=== PATIENT | female | born 1955 | race Caucasian/White ===

== ENCOUNTER 2019-01-26 11:00 | Outpatient (RCR) | payer MEDICAID, SELFPAY ==
[2019-01-12 11:13] VITALS: BP 168/89; PULSE 74; RESP 20; TEMP 36.4; BMI 50.6
--- NOTE | 2019-01-12 13:16 | PCM.WC.HP ---
(1) Morbid obesity with BMI of 60.0-69.9, adult Status: Acute Current Visit: Yes Code(s): E66.01 - Morbid (severe) obesity due to excess calories; Z68.44 - Body mass index (BMI) 60.0-69.9, adult (2) Lymphedema in adult patient Status: Acute Current Visit: Yes Code(s): I89.0 - Lymphedema, not elsewhere classified (3) Open wound of lower limb without complication Status: Acute Current Visit: Yes Code(s): S81.809A - Unspecified open wound, unspecified lower leg, initial encounter History of Present Illness Date of Service: 01/12/19 Chief Complaint: Follow-up on open wounds of her left upper thigh History of Wound: 63-year-old white female that has severe lymphedema on arms and lower extremities. She goes to the lymphedema clinic at [facility] weekly. She also uses her pumps 1 hour a day. She sleeps in a recliner she also suffers from morbid obesity. She noted a blistering area on her left upper thigh with seepage. Past Medical History Past Medical History: Lymphedema legs and arms. Orbit obesity. Open blisters that are seeping Allergies/Adverse Reactions: Allergies BEE STING Allergy (Uncoded 01/12/19 11:43) Swelling Home Medications: Ambulatory Orders Medication Instructions Recorded Furosemide [Lasix] 20 mg PO DAILY 01/12/19 Metoprolol Succinate 25 mg PO DAILY 01/12/19 Warfarin Sodium 2.5 mg PO DAILY 01/12/19 Smoking Status: Never smoker Review of Systems Constitutional: Denies: Chills, Fever Eyes: Denies: Blurred vision, Drainage, Pain HEENT: Denies: Difficulty Hearing, Difficulty Swallowing, Sore Throat, Visual Changes Cardiovascular: Denies: Chest Pain, Palpitations, Syncope Respiratory: Denies: Cough, Shortness of Breath Gastrointestinal: Denies: Abdominal Pain, Nausea, Vomiting Genitourinary: Denies: Dysuria, Frequency Musculoskeletal: Denies: Joint Pain, Muscle pain Skin: Reports: - - Open wounds on left upper thigh. Denies: Jaundice, Rash Neurological: Denies: Balance problems, Change in Speech, Difficulty swallowing, Focal weakness Psychiatric: Denies: Anxiety, Depression Endocrine: Denies: Change in Body Habitus Hematologic/ Lymphatic: Denies: Adenopathy - Physical Exam Vital Signs Temp Pulse Resp BP 97.5 F L 74 20 H 168/89 H 01/12/19 11:13 01/12/19 11:13 01/12/19 11:13 01/12/19 11:13 General: Oriented x3, Cooperative, Well developed HEENT: Atraumatic, PERRLA Oral: Moist Mucosa Neck: Supple, No JVD Lungs: Clear to auscultation, Normal air movement Cardiovascular: Regular rate, Regular Rhythm Abdomen: Bowel Sounds Present, Soft, Non Tender, No Hepato-splenomegaly Extremities: No clubbing, No edema, - - Open wounds on left upper thigh cluster superficial Wound Measurements and Assessment WC - Nurse 1 - General Ulcer Measurement Start: 01/12/19 11:11 Freq: Status: Active Protocol: Activity Type Activity Date Activity User E-Sign Co-Sign Detail Recorded Client Recorded Date Recorded By Document 01/12/19 11:13 [facility] [id number] 01/12/19 11:40 [facility] 01/12/19 11:13 Wound Center Nurse 1 [Ulcer Assessment] #1- L MEDIAL THIGH -Combined with other wound No -Current Size (cm) - Length 7.8 -Current Size (cm) - Width 3.2 -Current Size (cm) - Depth 0.1 -Total Square Cm 24.96 -Date of Last Picture (Recall this 01/12/19 field) -Photo Taken Yes -Epithelialization None Present -Tunneling No -Undermining/Tunneling No -Circular Undermining No -Exudate Amt Medium -Exudate Type Serous -Wound Margin Flat & Intact -Granulation Amt Medium (34-66%) -Granulation Quality Red -Slough/Fibrin Yes -Necrosis Amt Medium (34-66%) -Necrotic Tissue Type Adherent Slough -Texture (Marjan-wound Skin Appearance) Assessed, Scarring -Moisture (Marjan-wound Skin Appearance Assessed ) -Color (Marjan-wound Skin Appearance) Assessed, Erythema, Hemosiderin Staining -Temperature (Marjan-wound Skin No Abnormality Appearance) (Pt Warm) -Tenderness on Palpation (Marjan-wound No Skin Appearance) -Ulcer Cleansing SOAP AND WATER -Foul Odor after Cleansing No -Anesthetic Used 4% Lidocaine Solution [Edema Assessment] -Lower Limb Edema Present Yes -Right Calf (cm) 70.1 -Right Ankle (cm) 43 -Left Calf (cm) 68.6 -Left Ankle (cm) 40.1 WC - Nurse 2 - General Ulcer CM Notes Start: 01/12/19 11:11 Freq: Status: Active Protocol: Activity Type Activity Date Activity User E-Sign Co-Sign Detail Recorded Client Recorded Date Recorded By Document 01/12/19 12:09 MW [id number] 01/12/19 12:14 MW 01/12/19 12:09 Wound Center Nurse 2 [Procedure/Treatment] #1- L MEDIAL THIGH -Time 12:10 -Correct Patient Yes -Correct Side, Site, Position Yes -Correct Procedure Yes -Procedure Performed Yes -Type of Procedure Debridement -Clinical Debridement Subcutaneous -Post Debridement Size (cm) - Length 8.0 -Post Debridement Size (cm) - Width 3.0 -Post Debridement Size (cm) - Depth 0.1 -Total Square Cm 24.00 -Wound/Ulcer Outcome Not Healed -Ulcer Cleansing Rinsed/ Irrigated with Saline -Foul Odor after Cleansing No -Bioengineered Tissue No -Bleeding Controlled with Pressure -Offloading No -Treatment Response Procedure Tolerated Well [See Physician Procedure note for Specifics] Pain Scale: 0-10 Numeric [Pain] -Is Patient Pain Free? Yes Musculoskeletal: No Tenderness to Palpation of Joints or Extremities Lymphatic: No Cervical, Supraclavicular, or Inguinal Adenopathy Neurological: Cranial nerves II-XII grossly intact, Neuro grossly intact Psych/Mental Status: Normal Affect, Appropriate Debridement Note Post-Debridement Measurements/Treatment WC - Nurse 2 - General Ulcer CM Notes Start: 01/12/19 11:11 Freq: Status: Active Protocol: Activity Type Activity Date Activity User E-Sign Co-Sign Detail Recorded Client Recorded Date Recorded By Document 01/12/19 12:09 MW [id number] 01/12/19 12:14 MW 01/12/19 12:09 Wound Center Nurse 2 #1- L MEDIAL THIGH -Time 12:10 -Correct Patient Yes -Correct Side, Site, Position Yes -Correct Procedure Yes -Procedure Performed Yes -Type of Procedure Debridement -Clinical Debridement Subcutaneous -Post Debridement Size (cm) - Length 8.0 -Post Debridement Size (cm) - Width 3.0 -Post Debridement Size (cm) - Depth 0.1 -Total Square Cm 24.00 -Wound/Ulcer Outcome Not Healed -Ulcer Cleansing Rinsed/ Irrigated with Saline -Foul Odor after Cleansing No -Bioengineered Tissue No -Bleeding Controlled with Pressure -Offloading No -Treatment Response Procedure Tolerated Well Pain Scale: 0-10 Numeric Is Patient Pain Free? Yes Wound debrided: Left upper thigh cluster Type of Debridement: Excisional debridement Anesthesia Used: 5% Lidocaine Gel Depth: Down to and including healthy tissue Percentage of wound debrided: 100 Tissue Removed: Slough Amount of bleeding with debridement: None Bleeding Controlled with: Pressure Patient tolerated procedure well Assessment/Plan Active Problems Morbid obesity with BMI of 60.0-69.9, adult (Acute) Lymphedema in adult patient (Acute) Open wound of lower limb without complication (Acute) Assessment: Open wound left upper thigh cluster. Morbid obesity. Lymphedema Plan: Wash areas with antibacterial soap. Apply Xeroform dressings to the area cover with gauze. Wrap with Yamil wrap. Up in 1 week
--- NOTE | 2019-01-19 10:00 | PN.PCM_ITS ---
(1) Morbid obesity with BMI of 60.0-69.9, adult Status: Acute Current Visit: Yes Code(s): E66.01 - Morbid (severe) obesity due to excess calories; Z68.44 - Body mass index (BMI) 60.0-69.9, adult (2) Lymphedema in adult patient Status: Acute Current Visit: Yes Code(s): I89.0 - Lymphedema, not elsewhere classified (3) Open wound of lower limb without complication Status: Acute Current Visit: Yes Code(s): S81.809A - Unspecified open wound, unspecified lower leg, initial encounter Type of Wound Date of Service: 01/19/19 Chief Complaint: Follow-up on open wounds of her left upper thigh History of Wound: 63-year-old white female that has severe lymphedema on arms and lower extremities. She goes to the lymphedema clinic at [facility] weekly. She also uses her pumps 1 hour a day. She sleeps in a recliner she also suffers from morbid obesity. She noted a blistering area on her left upper thigh with seepage. Progress of Wound: The wound stones appear as superficial as they did last week we will switch over to Aquacel extra to wound bases and cover again with gauze and Yamil wraps. No increases in size is in no sign of infection. - Physical Exam Vital Signs Temp Pulse Resp BP 97.5 F L 74 20 H 168/89 H 01/12/19 11:13 01/12/19 11:13 01/12/19 11:13 01/12/19 11:13 General: Oriented x3, Cooperative, Well developed HEENT: Atraumatic, PERRLA Oral: Moist Mucosa Neck: Supple, No JVD Lungs: Clear to auscultation, Normal air movement Cardiovascular: Regular rate, Regular Rhythm Abdomen: Bowel Sounds Present, Soft, Non Tender, No Hepato-splenomegaly Extremities: No clubbing, Edema Skin: Ulcer/ Wound - Blisters that have opened on the inner aspect of left medial thigh and right wood Wound Measurements and Assessment WC - Nurse 2 - General Ulcer CM Notes Start: 01/12/19 11:11 Freq: Status: Active Protocol: Activity Type Activity Date Activity User E-Sign Co-Sign Detail Recorded Client Recorded Date Recorded By Document 01/19/19 09:23 MW [id number] 01/19/19 09:27 MW 01/19/19 09:23 Wound Center Nurse 2 [Procedure/Treatment] #2 right lateral LE -Time 09:25 -Correct Patient Yes -Correct Side, Site, Position Yes -Correct Procedure Yes -Procedure Performed Yes -Type of Procedure Debridement -Clinical Debridement Subcutaneous -Post Debridement Size (cm) - Length 1.5 -Post Debridement Size (cm) - Width 1.5 -Post Debridement Size (cm) - Depth 0.1 -Total Square Cm 2.25 -Wound/Ulcer Outcome Not Healed -Ulcer Cleansing Rinsed/ Irrigated with Saline -Foul Odor after Cleansing No -Bioengineered Tissue No -Bleeding Controlled with Pressure -Offloading No -Treatment Response Procedure Tolerated Well #1- L MEDIAL THIGH -Time 09:24 -Correct Patient Yes -Correct Side, Site, Position Yes -Correct Procedure Yes -Procedure Performed Yes -Type of Procedure Debridement -Clinical Debridement Subcutaneous -Post Debridement Size (cm) - Length 9.0 -Post Debridement Size (cm) - Width 3.0 -Post Debridement Size (cm) - Depth 0.1 -Total Square Cm 27.00 -Wound/Ulcer Outcome Not Healed -Ulcer Cleansing Rinsed/ Irrigated with Saline -Foul Odor after Cleansing No -Bioengineered Tissue No -Bleeding Controlled with Pressure -Offloading No -Treatment Response Procedure Tolerated Well [See Physician Procedure note for Specifics] Pain Scale: 0-10 Numeric [Pain] -Is Patient Pain Free? Yes Musculoskeletal: No Tenderness to Palpation of Joints or Extremities Lymphatic: No Cervical, Supraclavicular, or Inguinal Adenopathy Neurological: Cranial nerves II-XII grossly intact, Neuro grossly intact Psych/Mental Status: Normal Affect, Appropriate Debridement Note Post-Debridement Measurements/Treatment WC - Nurse 2 - General Ulcer CM Notes Start: 01/12/19 11:11 Freq: Status: Active Protocol: Activity Type Activity Date Activity User E-Sign Co-Sign Detail Recorded Client Recorded Date Recorded By Document 01/12/19 12:09 MW [id number] 01/12/19 12:14 MW Document 01/19/19 09:23 MW [id number] 01/19/19 09:27 MW 01/12/19 01/19/19 12:09 09:23 Wound Center Nurse 2 #2 right lateral LE -Time 09:25 -Correct Patient Yes -Correct Side, Site, Position Yes -Correct Procedure Yes -Procedure Performed Yes -Type of Procedure Debridement -Clinical Debridement Subcutaneous -Post Debridement Size (cm) - Length 1.5 -Post Debridement Size (cm) - Width 1.5 -Post Debridement Size (cm) - Depth 0.1 -Total Square Cm 2.25 -Wound/Ulcer Outcome Not Healed -Ulcer Cleansing Rinsed/ Irrigated with Saline -Foul Odor after Cleansing No -Bioengineered Tissue No -Bleeding Controlled with Pressure -Offloading No -Treatment Response Procedure Tolerated Well #1- L MEDIAL THIGH -Time 12:10 09:24 -Correct Patient Yes Yes -Correct Side, Site, Position Yes Yes -Correct Procedure Yes Yes -Procedure Performed Yes Yes -Type of Procedure Debridement Debridement -Clinical Debridement Subcutaneous Subcutaneous -Post Debridement Size (cm) - Length 8.0 9.0 -Post Debridement Size (cm) - Width 3.0 3.0 -Post Debridement Size (cm) - Depth 0.1 0.1 -Total Square Cm 24.00 27.00 -Wound/Ulcer Outcome Not Healed Not Healed -Ulcer Cleansing Rinsed/ Rinsed/ Irrigated with Irrigated with Saline Saline -Foul Odor after Cleansing No No -Bioengineered Tissue No No -Bleeding Controlled with Pressure Pressure -Offloading No No -Treatment Response Procedure Procedure Tolerated Well Tolerated Well Pain Scale: 0-10 Numeric Is Patient Pain Free? Yes Yes Wound debrided: Left medial thigh Type of Debridement: Excisional debridement Anesthesia Used: 5% Lidocaine Gel Depth: Down to and including healthy tissue Percentage of wound debrided: 100 Instrument Used: 7mm curette Tissue Removed: Fibrin and some slough Severity: Limited To Skin Breakdown Amount of bleeding with debridement: None Bleeding Controlled with: Pressure Patient tolerated procedure well - Additional Wound Wound debrided: Right wood Type of Debridement: Excisional debridement Anesthesia Used: 5% Lidocaine Gel Depth: Down to and including healthy tissue Percentage of wound debrided: 100 Instrument Used: 7mm curette Severity: Limited To Skin Breakdown Amount of bleeding with debridement: None Bleeding Controlled with: Compression and gauze Patient tolerated procedure: Patient tolerated procedure well Assessment/Plan Active Problems Morbid obesity with BMI of 60.0-69.9, adult (Acute) Lymphedema in adult patient (Acute) Open wound of lower limb without complication (Acute) Assessment: Open wound left upper thigh cluster. Morbid obesity. Lymphedema Plan: Wash areas with antibacterial soap. Apply Aquacel extra dressings to the area cover with gauze. Wrap with Yamil wrap. Up in 1 week
[2019-01-26 10:59] VITALS: BP 154/80; PULSE 84; RESP 18; TEMP 36.2; BMI 50.6
--- NOTE | 2019-01-26 12:48 | PCM.WC.PN ---
(1) Morbid obesity with BMI of 60.0-69.9, adult Status: Acute Current Visit: Yes Code(s): E66.01 - Morbid (severe) obesity due to excess calories; Z68.44 - Body mass index (BMI) 60.0-69.9, adult (2) Lymphedema in adult patient Status: Acute Current Visit: Yes Code(s): I89.0 - Lymphedema, not elsewhere classified (3) Open wound of lower limb without complication Status: Acute Current Visit: Yes Code(s): S81.809A - Unspecified open wound, unspecified lower leg, initial encounter Type of Wound Date of Service: 01/26/19 Chief Complaint: Follow-up on open wounds of her left upper thigh History of Wound: 63-year-old white female that has severe lymphedema on arms and lower extremities. She goes to the lymphedema clinic at [facility] weekly. She also uses her pumps 1 hour a day. She sleeps in a recliner she also suffers from morbid obesity. She noted a blistering area on her left upper thigh with seepage. Progress of Wound: The the areas on the upper left thigh are superficial and cleaned out well on the Aquacel extra right wood is almost healed. No sign of infection continue to improve. - Physical Exam Vital Signs Temp Pulse Resp BP 97.1 F L 84 18 154/80 H 01/26/19 10:59 01/26/19 10:59 01/26/19 10:59 01/26/19 10:59 General: Oriented x3, Cooperative, Well developed HEENT: Atraumatic, PERRLA Oral: Moist Mucosa Neck: Supple, No JVD Lungs: Clear to auscultation, Normal air movement Cardiovascular: Regular rate, Regular Rhythm Abdomen: Bowel Sounds Present, Soft, Non Tender, No Hepato-splenomegaly Extremities: No clubbing, No edema, - - Superficial open areas on left upper thigh and right wood Wound Measurements and Assessment WC - Nurse 1 - General Ulcer Measurement Start: 01/12/19 11:11 Freq: Status: Active Protocol: Activity Type Activity Date Activity User E-Sign Co-Sign Detail Recorded Client Recorded Date Recorded By Document 01/26/19 10:59 RB [id number] 01/26/19 11:14 RB 01/26/19 10:59 Wound Center Nurse 1 [Ulcer Assessment] #2 right lateral LE -Combined with other wound No -Current Size (cm) - Length 1 -Current Size (cm) - Width 1.7 -Current Size (cm) - Depth 0.1 -Total Square Cm 1.7 -Tunneling No -Undermining/Tunneling No -Circular Undermining No -Exudate Amt Medium -Exudate Type Serosanguineous -Wound Margin Distinct, Outline Attached -Granulation Amt Medium (34-66%) -Granulation Quality [place] -Slough/Fibrin Yes -Necrosis Amt Medium (34-66%) -Necrotic Tissue Type Adherent Slough -Structure Exposed N/A -Texture (Marjan-wound Skin Appearance) Assessed, Friable -Moisture (Marjan-wound Skin Appearance Assessed, ) Weeping -Color (Marjan-wound Skin Appearance) Assessed -Temperature (Marjan-wound Skin No Abnormality Appearance) (Pt Warm) -Tenderness on Palpation (Marjan-wound No Skin Appearance) -Ulcer Cleansing Wound Cleanser -Foul Odor after Cleansing No -Anesthetic Used 5% Lidocaine Gel #1- L MEDIAL THIGH -Combined with other wound No -Current Size (cm) - Length 10.5 -Current Size (cm) - Width 9.5 -Current Size (cm) - Depth 0.1 -Total Square Cm 99.75 -Tunneling No -Undermining/Tunneling No -Circular Undermining No -Exudate Amt Medium -Exudate Type Serosanguineous -Wound Margin Distinct, Outline Attached -Granulation Amt Medium (34-66%) -Granulation Quality [place] -Slough/Fibrin Yes -Necrosis Amt Small (1-33%) -Necrotic Tissue Type Adherent Slough -Structure Exposed N/A -Texture (Marjan-wound Skin Appearance) Assessed, Friable -Moisture (Marjan-wound Skin Appearance Assessed, ) Weeping -Color (Marjan-wound Skin Appearance) Assessed -Temperature (Marjan-wound Skin No Abnormality Appearance) (Pt Warm) -Tenderness on Palpation (Marjan-wound No Skin Appearance) -Ulcer Cleansing Rinsed/ Irrigated with Saline -Foul Odor after Cleansing No -Anesthetic Used 4% Lidocaine Solution [Edema Assessment] -Lower Limb Edema Present Yes -Right Calf (cm) 70.5 -Right Ankle (cm) 45 -Left Calf (cm) 66.5 -Left Ankle (cm) 40 WC - Nurse 2 - General Ulcer CM Notes Start: 01/12/19 11:11 Freq: Status: Active Protocol: Activity Type Activity Date Activity User E-Sign Co-Sign Detail Recorded Client Recorded Date Recorded By Document 01/26/19 11:43 MW [id number] 01/26/19 11:45 MW 01/26/19 11:43 Wound Center Nurse 2 [Procedure/Treatment] #2 right lateral LE -Time 11:43 -Correct Patient Yes -Correct Side, Site, Position Yes -Correct Procedure Yes -Procedure Performed Yes -Type of Procedure Debridement -Clinical Debridement Subcutaneous -Post Debridement Size (cm) - Length 1.3 -Post Debridement Size (cm) - Width 1.5 -Post Debridement Size (cm) - Depth 0.1 -Total Square Cm 1.95 -Wound/Ulcer Outcome Not Healed -Ulcer Cleansing Rinsed/ Irrigated with Saline -Foul Odor after Cleansing No -Bioengineered Tissue No -Bleeding Controlled with Pressure -Offloading No -Treatment Response Procedure Tolerated Well #1- L MEDIAL THIGH -Time 11:43 -Correct Patient Yes -Correct Side, Site, Position Yes -Correct Procedure Yes -Procedure Performed Yes -Type of Procedure Debridement -Clinical Debridement Subcutaneous -Post Debridement Size (cm) - Length 8.5 -Post Debridement Size (cm) - Width 5.5 -Post Debridement Size (cm) - Depth 0.1 -Total Square Cm 46.75 -Wound/Ulcer Outcome Not Healed -Ulcer Cleansing Rinsed/ Irrigated with Saline -Foul Odor after Cleansing No -Bioengineered Tissue No -Bleeding Controlled with Pressure -Offloading No -Treatment Response Procedure Tolerated Well [See Physician Procedure note for Specifics] Pain Scale: 0-10 Numeric [Pain] -Is Patient Pain Free? Yes Musculoskeletal: No Tenderness to Palpation of Joints or Extremities Lymphatic: No Cervical, Supraclavicular, or Inguinal Adenopathy Neurological: Cranial nerves II-XII grossly intact, Neuro grossly intact Psych/Mental Status: Normal Affect, Appropriate Debridement Note Post-Debridement Measurements/Treatment WC - Nurse 2 - General Ulcer CM Notes Start: 01/12/19 11:11 Freq: Status: Active Protocol: Activity Type Activity Date Activity User E-Sign Co-Sign Detail Recorded Client Recorded Date Recorded By Document 01/12/19 12:09 MW [id number] 01/12/19 12:14 MW Document 01/19/19 09:23 MW [id number] 01/19/19 09:27 MW Document 01/26/19 11:43 MW [id number] 01/26/19 11:45 MW 01/12/19 01/19/19 01/26/19 12:09 09:23 11:43 Wound Center Nurse 2 #2 right lateral LE -Time 09:25 11:43 -Correct Patient Yes Yes -Correct Side, Site, Position Yes Yes -Correct Procedure Yes Yes -Procedure Performed Yes Yes -Type of Procedure Debridement Debridement -Clinical Debridement Subcutaneous Subcutaneous -Post Debridement Size (cm) - Length 1.5 1.3 -Post Debridement Size (cm) - Width 1.5 1.5 -Post Debridement Size (cm) - Depth 0.1 0.1 -Total Square Cm 2.25 1.95 -Wound/Ulcer Outcome Not Healed Not Healed -Ulcer Cleansing Rinsed/ Rinsed/ Irrigated with Irrigated with Saline Saline -Foul Odor after Cleansing No No -Bioengineered Tissue No No -Bleeding Controlled with Pressure Pressure -Offloading No No -Treatment Response Procedure Procedure Tolerated Well Tolerated Well #1- L MEDIAL THIGH -Time 12:10 09:24 11:43 -Correct Patient Yes Yes Yes -Correct Side, Site, Position Yes Yes Yes -Correct Procedure Yes Yes Yes -Procedure Performed Yes Yes Yes -Type of Procedure Debridement Debridement Debridement -Clinical Debridement Subcutaneous Subcutaneous Subcutaneous -Post Debridement Size (cm) - Length 8.0 9.0 8.5 -Post Debridement Size (cm) - Width 3.0 3.0 5.5 -Post Debridement Size (cm) - Depth 0.1 0.1 0.1 -Total Square Cm 24.00 27.00 46.75 -Wound/Ulcer Outcome Not Healed Not Healed Not Healed -Ulcer Cleansing Rinsed/ Rinsed/ Rinsed/ Irrigated with Irrigated with Irrigated with Saline Saline Saline -Foul Odor after Cleansing No No No -Bioengineered Tissue No No No -Bleeding Controlled with Pressure Pressure Pressure -Offloading No No No -Treatment Response Procedure Procedure Procedure Tolerated Well Tolerated Well Tolerated Well Pain Scale: 0-10 Numeric Is Patient Pain Free? Yes Yes Yes Wound debrided: Left upper thigh cluster Type of Debridement: Excisional debridement Anesthesia Used: 5% Lidocaine Gel Depth: Down to and including healthy tissue Percentage of wound debrided: 100 Instrument Used: 7mm curette Tissue Removed: Fibrin and some slough Severity: Limited To Skin Breakdown Amount of bleeding with debridement: None Bleeding Controlled with: Pressure Patient tolerated procedure well - Additional Wound Wound debrided: Right wood Type of Debridement: Excisional debridement Anesthesia Used: 5% Lidocaine Gel Depth: Down to and including healthy tissue Percentage of wound debrided: 100 Instrument Used: 7mm curette Tissue Removed: Fibrin Severity: Limited To Skin Breakdown Amount of bleeding with debridement: None Bleeding Controlled with: Pressure Patient tolerated procedure: Patient tolerated procedure well Assessment/Plan Active Problems Morbid obesity with BMI of 60.0-69.9, adult (Acute) Lymphedema in adult patient (Acute) Open wound of lower limb without complication (Acute) Assessment: Open wound left upper thigh cluster. Morbid obesity. Lymphedema Plan: Wash areas with antibacterial soap. Apply Aquacel extra dressings to the area cover with gauze. Wrap with Yamil wrap. Up in 2 week
== END 2019-02-05 23:59 ==
LOC: WC 11:00
PROVIDERS: Family Provider Physician Assistant Medical; PCP Physician Assistant Medical; Visit Provider Nurse Practitioner
DX: S70.322A Blister (nonthermal), left thigh, initial encounter (principal); X58.XXXA Exposure to other specified factors, initial encounter; I89.0 Lymphedema, not elsewhere classified; E66.01 Morbid (severe) obesity due to excess calories; Z68.44 Body mass index [BMI] 60.0-69.9, adult; Z71.3 Dietary counseling and surveillance; Z79.899 Other long term (current) drug therapy; Z79.01 Long term (current) use of anticoagulants; S81.801A Unspecified open wound, right lower leg, initial encounter
CPT/HCPCS: 11042; 11045; 99203; G0463

== ENCOUNTER 2019-02-23 10:30 | Outpatient (RCR) | payer MEDICAID, SELFPAY ==
[2019-02-06 01:11] VITALS: BP 154/80; PULSE 84; RESP 18; TEMP 36.2
[2019-02-09 10:40] VITALS: BP 161/89; PULSE 76; RESP 18; TEMP 36.2; BMI 50.6
--- NOTE | 2019-02-09 12:30 | PCM.WC.PN ---
(1) Lymphedema in adult patient Status: Acute Current Visit: No Code(s): I89.0 - Lymphedema, not elsewhere classified (2) Open wound of lower limb without complication Status: Acute Current Visit: No Code(s): S81.809A - Unspecified open wound, unspecified lower leg, initial encounter (3) Superficial ulcer of skin Status: Acute Current Visit: Yes Code(s): L98.491 - Non-pressure chronic ulcer of skin of other sites limited to breakdown of skin Type of Wound Date of Service: 02/09/19 Chief Complaint: Follow-up on open wounds of her left upper thigh History of Wound: 63-year-old white female that has severe lymphedema on arms and lower extremities. She goes to the lymphedema clinic at [facility] weekly. She also uses her pumps 1 hour a day. She sleeps in a recliner she also suffers from morbid obesity. She noted a blistering area on her left upper thigh with seepage. Progress of Wound: The the areas on the upper left thigh are superficial and cleaned out well on the Aquacel extra right wood is almost healed. No sign of infection continue to improve. Right lateral superficial openings left medial thigh right lateral leg right lower leg openings are all superficial from blisters that open from her noncompliance with her wraps and using her compression machine. - Physical Exam Vital Signs Temp Pulse Resp BP 97.1 F L 76 18 161/89 H 02/09/19 10:40 02/09/19 10:40 02/09/19 10:40 02/09/19 10:40 General: Oriented x3, Cooperative, Well developed HEENT: Atraumatic, PERRLA Oral: Moist Mucosa Neck: Supple, No JVD Lungs: Clear to auscultation, Normal air movement Cardiovascular: Regular rate, Regular Rhythm Abdomen: Bowel Sounds Present, Soft, Non Tender, No Hepato-splenomegaly Extremities: No clubbing, No edema, - - Lymphedema superficial openings from blisters from noncompliance with her compression stockings Wound Measurements and Assessment WC - Nurse 1 - General Ulcer Measurement Start: 02/09/19 10:39 Freq: Status: Active Protocol: Activity Type Activity Date Activity User E-Sign Co-Sign Detail Recorded Client Recorded Date Recorded By Document 02/09/19 10:40 [facility] [id number] 02/09/19 10:55 BMF 02/09/19 10:40 Wound Center Nurse 1 [Ulcer Assessment] #3- R MED LE CLUSTER -Combined with other wound No -Current Size (cm) - Length 8.5 -Current Size (cm) - Width 4.5 -Current Size (cm) - Depth 0.1 -Total Square Cm 38.25 -Photo Taken No -Epithelialization None Present -Tunneling No -Undermining/Tunneling No -Circular Undermining No -Exudate Amt Medium -Exudate Type Serous -Wound Margin Flat & Intact -Granulation Amt Medium (34-66%) -Granulation Quality Pale,Red -Slough/Fibrin Yes -Necrosis Amt Medium (34-66%) -Necrotic Tissue Type Adherent Slough -Texture (Marjan-wound Skin Appearance) Assessed, Scarring -Moisture (Marjan-wound Skin Appearance Assessed, ) Maceration -Color (Marjan-wound Skin Appearance) Assessed, Erythema -Temperature (Marjan-wound Skin No Abnormality Appearance) (Pt Warm) -Tenderness on Palpation (Marjan-wound No Skin Appearance) -Ulcer Cleansing SOAP AND WATER -Foul Odor after Cleansing No -Anesthetic Used 4% Lidocaine Solution #2 right lateral LE -Combined with other wound No -Current Size (cm) - Length 9.5 -Current Size (cm) - Width 4.8 -Current Size (cm) - Depth 0.1 -Total Square Cm 45.60 -Photo Taken No -Epithelialization None Present -Tunneling No -Undermining/Tunneling No -Circular Undermining No -Exudate Amt Large -Exudate Type Serous -Wound Margin Flat & Intact -Granulation Amt Medium (34-66%) -Granulation Quality Pale,Red -Slough/Fibrin Yes -Necrosis Amt Medium (34-66%) -Necrotic Tissue Type Adherent Slough -Texture (Marjan-wound Skin Appearance) Assessed, Scarring -Moisture (Marjan-wound Skin Appearance Assessed, ) Maceration, Weeping -Color (Marjan-wound Skin Appearance) Assessed, Erythema,Palor -Temperature (Marjan-wound Skin No Abnormality Appearance) (Pt Warm) -Tenderness on Palpation (Marjan-wound No Skin Appearance) -Ulcer Cleansing SOAP AND WATER -Foul Odor after Cleansing No -Anesthetic Used 4% Lidocaine Solution #1- L MEDIAL THIGH -Combined with other wound No -Current Size (cm) - Length 8.8 -Current Size (cm) - Width 4.5 -Current Size (cm) - Depth 0.1 -Total Square Cm 39.60 -Photo Taken No -Epithelialization None Present -Tunneling No -Undermining/Tunneling No -Circular Undermining No -Exudate Amt Medium -Exudate Type Serous -Wound Margin Flat & Intact -Granulation Amt Medium (34-66%) -Granulation Quality Pale,Red -Slough/Fibrin Yes -Necrosis Amt Medium (34-66%) -Necrotic Tissue Type Adherent Slough -Texture (Marjan-wound Skin Appearance) Assessed, Scarring -Moisture (Marjan-wound Skin Appearance Assessed, ) Maceration -Color (Marjan-wound Skin Appearance) Assessed, Erythema,Palor -Temperature (Marjan-wound Skin No Abnormality Appearance) (Pt Warm) -Tenderness on Palpation (Marjan-wound No Skin Appearance) -Ulcer Cleansing SOAP AND WATER -Foul Odor after Cleansing No -Anesthetic Used 4% Lidocaine Solution [Edema Assessment] -Lower Limb Edema Present Yes -Right Calf (cm) 70.5 -Right Ankle (cm) 37.5 -Left Calf (cm) 68.5 -Left Ankle (cm) 39.5 WC - Nurse 2 - General Ulcer CM Notes Start: 02/09/19 10:39 Freq: Status: Active Protocol: Activity Type Activity Date Activity User E-Sign Co-Sign Detail Recorded Client Recorded Date Recorded By Document 02/09/19 11:07 MW [id number] 02/09/19 11:12 MW 02/09/19 11:07 Wound Center Nurse 2 [Procedure/Treatment] #3- R MED LE CLUSTER -Time 11:08 -Correct Patient Yes -Correct Side, Site, Position Yes -Correct Procedure Yes -Procedure Performed Yes -Type of Procedure Debridement -Clinical Debridement Subcutaneous -Post Debridement Size (cm) - Length 9.5 -Post Debridement Size (cm) - Width 4.5 -Post Debridement Size (cm) - Depth 0.1 -Total Square Cm 42.75 -Wound/Ulcer Outcome Not Healed -Ulcer Cleansing Rinsed/ Irrigated with Saline -Foul Odor after Cleansing No -Bioengineered Tissue No -Bleeding Controlled with Pressure -Offloading No -Treatment Response Procedure Tolerated Well #2 right lateral LE -Time 11:08 -Correct Patient Yes -Correct Side, Site, Position Yes -Correct Procedure Yes -Procedure Performed Yes -Type of Procedure Debridement -Clinical Debridement Subcutaneous -Post Debridement Size (cm) - Length 9.0 -Post Debridement Size (cm) - Width 5.0 -Post Debridement Size (cm) - Depth 0.1 -Total Square Cm 45.00 -Wound/Ulcer Outcome Not Healed -Ulcer Cleansing Rinsed/ Irrigated with Saline -Foul Odor after Cleansing No -Bioengineered Tissue No -Bleeding Controlled with Pressure -Offloading No -Treatment Response Procedure Tolerated Well #1- L MEDIAL THIGH -Time 11:10 -Correct Patient Yes -Correct Side, Site, Position Yes -Correct Procedure Yes -Procedure Performed Yes -Type of Procedure Debridement -Clinical Debridement Subcutaneous -Post Debridement Size (cm) - Length 9.0 -Post Debridement Size (cm) - Width 7.0 -Post Debridement Size (cm) - Depth 0.1 -Total Square Cm 63.00 -Wound/Ulcer Outcome Not Healed -Ulcer Cleansing Rinsed/ Irrigated with Saline -Foul Odor after Cleansing No -Bioengineered Tissue No -Bleeding Controlled with Pressure -Offloading No -Treatment Response Procedure Tolerated Well [See Physician Procedure note for Specifics] Pain Scale: 0-10 Numeric [Pain] -Is Patient Pain Free? Yes Musculoskeletal: No Tenderness to Palpation of Joints or Extremities Lymphatic: No Cervical, Supraclavicular, or Inguinal Adenopathy Neurological: Cranial nerves II-XII grossly intact, Neuro grossly intact Psych/Mental Status: Normal Affect, Appropriate Debridement Note Post-Debridement Measurements/Treatment WC - Nurse 2 - General Ulcer CM Notes Start: 02/09/19 10:39 Freq: Status: Active Protocol: Activity Type Activity Date Activity User E-Sign Co-Sign Detail Recorded Client Recorded Date Recorded By Document 02/09/19 11:07 MW [id number] 02/09/19 11:12 MW 02/09/19 11:07 Wound Center Nurse 2 #3- R MED LE [facility] -Time 11:08 -Correct Patient Yes -Correct Side, Site, Position Yes -Correct Procedure Yes -Procedure Performed Yes -Type of Procedure Debridement -Clinical Debridement Subcutaneous -Post Debridement Size (cm) - Length 9.5 -Post Debridement Size (cm) - Width 4.5 -Post Debridement Size (cm) - Depth 0.1 -Total Square Cm 42.75 -Wound/Ulcer Outcome Not Healed -Ulcer Cleansing Rinsed/ Irrigated with Saline -Foul Odor after Cleansing No -Bioengineered Tissue No -Bleeding Controlled with Pressure -Offloading No -Treatment Response Procedure Tolerated Well #2 right lateral LE -Time 11:08 -Correct Patient Yes -Correct Side, Site, Position Yes -Correct Procedure Yes -Procedure Performed Yes -Type of Procedure Debridement -Clinical Debridement Subcutaneous -Post Debridement Size (cm) - Length 9.0 -Post Debridement Size (cm) - Width 5.0 -Post Debridement Size (cm) - Depth 0.1 -Total Square Cm 45.00 -Wound/Ulcer Outcome Not Healed -Ulcer Cleansing Rinsed/ Irrigated with Saline -Foul Odor after Cleansing No -Bioengineered Tissue No -Bleeding Controlled with Pressure -Offloading No -Treatment Response Procedure Tolerated Well #1- L MEDIAL THIGH -Time 11:10 -Correct Patient Yes -Correct Side, Site, Position Yes -Correct Procedure Yes -Procedure Performed Yes -Type of Procedure Debridement -Clinical Debridement Subcutaneous -Post Debridement Size (cm) - Length 9.0 -Post Debridement Size (cm) - Width 7.0 -Post Debridement Size (cm) - Depth 0.1 -Total Square Cm 63.00 -Wound/Ulcer Outcome Not Healed -Ulcer Cleansing Rinsed/ Irrigated with Saline -Foul Odor after Cleansing No -Bioengineered Tissue No -Bleeding Controlled with Pressure -Offloading No -Treatment Response Procedure Tolerated Well Pain Scale: 0-10 Numeric Is Patient Pain Free? Yes Wound debrided: Left upper thigh Laterality: Left Type of Debridement: Excisional debridement Anesthesia Used: 5% Lidocaine Gel Depth: Down to and including healthy tissue, in the subcutaneous layer Percentage of wound debrided: 100 Instrument Used: 7mm curette Tissue Removed: Fibrin Severity: Limited To Skin Breakdown Amount of bleeding with debridement: None Bleeding Controlled with: Pressure Patient tolerated procedure well - Additional Wound Wound debrided: Left medial thigh cluster Type of Debridement: Excisional debridement Anesthesia Used: 5% Lidocaine Gel Depth: Down to and including healthy tissue Percentage of wound debrided: 100 Instrument Used: 7mm curette Tissue Removed: Fibrin Severity: Limited To Skin Breakdown Amount of bleeding with debridement: None Patient tolerated procedure: Patient tolerated procedure well - Additional Wound Wound debrided: Right lateral lower leg posterior Type of Debridement: Excisional debridement Anesthesia Used: 5% Lidocaine Gel Depth: Down to and including healthy tissue Percentage of wound debrided: 100 Instrument Used: 7mm curette Tissue Removed: fibrin Severity: Limited To Skin Breakdown Amount of bleeding with debridement: None Bleeding Controlled with: Pressure Patient tolerated procedure: Patient tolerated procedure well Assessment/Plan Active Problems Superficial ulcer of skin (Acute) Assessment: Open wound left upper thigh cluster. Morbid obesity. Lymphedema Plan: Wash areas with antibacterial soap. Apply Aquacel extra dressings to the area cover with gauze. Wrap with Yamil wrap. Up in 1 week. Increase use of compression pump to 2 times a day wear over compression stockings
[2019-02-16 10:53] VITALS: BP 156/95; PULSE 98; RESP 20; TEMP 36.2; BMI 50.6
--- NOTE | 2019-02-16 11:35 | PN.PCM_ITS ---
(1) Lymphedema in adult patient Status: Acute Current Visit: No Code(s): I89.0 - Lymphedema, not elsewhere classified (2) Open wound of lower limb without complication Status: Acute Current Visit: No Code(s): S81.809A - Unspecified open wound, unspecified lower leg, initial encounter (3) Superficial ulcer of skin Status: Acute Current Visit: Yes Code(s): L98.491 - Non-pressure chronic ulcer of skin of other sites limited to breakdown of skin Type of Wound Date of Service: 02/16/19 Chief Complaint: Follow-up on open wounds of her left upper thigh History of Wound: 63-year-old white female that has severe lymphedema on arms and lower extremities. She goes to the lymphedema clinic at [facility] weekly. She also uses her pumps 1 hour a day. She sleeps in a recliner she also suffers from morbid obesity. She noted a blistering area on her left upper thigh with seepage. Progress of Wound: The the areas on the upper left thigh are superficial and cleaned out well on the Aquacel extra right wood is almost healed. No sign of infection continue to improve. Right lateral superficial openings left medial thigh right lateral leg right lower leg openings are all superficial from blisters that open from her noncompliance with her wraps and using her compression machine. Doing better with the compressions wraps and compression machine. - Physical Exam Vital Signs Temp Pulse Resp BP 97.1 F L 98 20 H 156/95 H 02/16/19 10:53 02/16/19 10:53 02/16/19 10:53 02/16/19 10:53 General: Oriented x3, Cooperative, Well developed HEENT: Atraumatic, PERRLA Oral: Moist Mucosa Neck: Supple, No JVD Lungs: Clear to auscultation, Normal air movement Cardiovascular: Regular rate, Regular Rhythm Abdomen: Bowel Sounds Present, Soft, Non Tender, No Hepato-splenomegaly Extremities: No clubbing, No edema Skin: Ulcer/ Wound Wound Measurements and Assessment WC - Nurse 1 - General Ulcer Measurement Start: 02/09/19 10:39 Freq: Status: Active Protocol: Activity Type Activity Date Activity User E-Sign Co-Sign Detail Recorded Client Recorded Date Recorded By Document 02/16/19 10:53 [facility] [id number] 02/16/19 11:10 BMF 02/16/19 10:53 Wound Center Nurse 1 [Ulcer Assessment] #3- R MED LE CLUSTER -Combined with other wound No -Current Size (cm) - Length 9 -Current Size (cm) - Width 3.4 -Current Size (cm) - Depth 0.1 -Total Square Cm 30.6 -Photo Taken No -Epithelialization Small 1-33% -Tunneling No -Undermining/Tunneling No -Circular Undermining No -Exudate Amt Small -Exudate Type Serous -Wound Margin Flat & Intact -Granulation Amt Large (67-100%) -Granulation Quality Red -Slough/Fibrin Yes -Necrosis Amt Small (1-33%) -Necrotic Tissue Type Adherent Slough -Texture (Marjan-wound Skin Appearance) Assessed, Scarring -Moisture (Marjan-wound Skin Appearance Assessed, ) Weeping -Color (Marjan-wound Skin Appearance) Assessed, Erythema -Temperature (Marjan-wound Skin No Abnormality Appearance) (Pt Warm) -Tenderness on Palpation (Marjan-wound No Skin Appearance) -Ulcer Cleansing SOAP AND WATER -Foul Odor after Cleansing No -Anesthetic Used 4% Lidocaine Solution #2 right lateral LE -Combined with other wound No -Current Size (cm) - Length 1.9 -Current Size (cm) - Width 2.3 -Current Size (cm) - Depth 0.1 -Total Square Cm 4.37 -Photo Taken No -Epithelialization Small 1-33% -Tunneling No -Undermining/Tunneling No -Circular Undermining No -Exudate Amt Small -Exudate Type Serous -Wound Margin Flat & Intact -Granulation Amt Medium (34-66%) -Granulation Quality Red -Slough/Fibrin Yes -Necrosis Amt Medium (34-66%) -Necrotic Tissue Type Adherent Slough -Texture (Marjan-wound Skin Appearance) Assessed, Scarring -Moisture (Marjan-wound Skin Appearance Assessed, ) Weeping -Color (Marjan-wound Skin Appearance) Assessed, Erythema -Temperature (Marjan-wound Skin No Abnormality Appearance) (Pt Warm) -Tenderness on Palpation (Marjan-wound No Skin Appearance) -Ulcer Cleansing SOAP AND WATER -Foul Odor after Cleansing No -Anesthetic Used 4% Lidocaine Solution #1- L MEDIAL THIGH -Combined with other wound No -Current Size (cm) - Length 8.6 -Current Size (cm) - Width 5.5 -Current Size (cm) - Depth 0.2 -Total Square Cm 47.30 -Photo Taken No -Epithelialization None Present -Tunneling No -Undermining/Tunneling No -Circular Undermining No -Exudate Amt Medium -Exudate Type Serous -Wound Margin Flat & Intact -Granulation Amt Large (67-100%) -Granulation Quality Pale,Red -Slough/Fibrin Yes -Necrosis Amt Small (1-33%) -Necrotic Tissue Type Adherent Slough -Texture (Marjan-wound Skin Appearance) Assessed, Scarring -Moisture (Marjan-wound Skin Appearance Assessed, ) Weeping -Color (Marjan-wound Skin Appearance) Assessed, Erythema -Temperature (Marjan-wound Skin No Abnormality Appearance) (Pt Warm) -Tenderness on Palpation (Marjan-wound No Skin Appearance) -Ulcer Cleansing SOAP AND WATER -Foul Odor after Cleansing No -Anesthetic Used 4% Lidocaine Solution [Edema Assessment] -Lower Limb Edema Present Yes -Right Calf (cm) 70.3 -Right Ankle (cm) 34.1 -Left Calf (cm) 67.9 -Left Ankle (cm) 39 WC - Nurse 2 - General Ulcer CM Notes Start: 02/09/19 10:39 Freq: Status: Active Protocol: Activity Type Activity Date Activity User E-Sign Co-Sign Detail Recorded Client Recorded Date Recorded By Document 02/16/19 11:17 MW [id number] 02/16/19 11:23 MW 02/16/19 11:17 Wound Center Nurse 2 [Procedure/Treatment] #3- R MED LE CLUSTER -Time 11:17 -Correct Patient Yes -Correct Side, Site, Position Yes -Correct Procedure Yes -Procedure Performed Yes -Type of Procedure Debridement -Clinical Debridement Subcutaneous -Post Debridement Size (cm) - Length 7.0 -Post Debridement Size (cm) - Width 3.5 -Post Debridement Size (cm) - Depth 0.1 -Total Square Cm 24.50 -Wound/Ulcer Outcome Not Healed -Ulcer Cleansing Rinsed/ Irrigated with Saline -Foul Odor after Cleansing No -Bioengineered Tissue No -Bleeding Controlled with Pressure -Offloading No -Treatment Response Procedure Tolerated Well #2 right lateral LE -Time 11:17 -Correct Patient Yes -Correct Side, Site, Position Yes -Correct Procedure Yes -Procedure Performed Yes -Type of Procedure Debridement -Clinical Debridement Subcutaneous -Post Debridement Size (cm) - Length 5.0 -Post Debridement Size (cm) - Width 5.0 -Post Debridement Size (cm) - Depth 0.1 -Total Square Cm 25.00 -Wound/Ulcer Outcome Not Healed -Ulcer Cleansing Rinsed/ Irrigated with Saline -Foul Odor after Cleansing No -Bioengineered Tissue No -Bleeding Controlled with Pressure -Offloading No -Treatment Response Procedure Tolerated Well #1- L MEDIAL THIGH -Time 11:18 -Correct Patient Yes -Correct Side, Site, Position Yes -Correct Procedure Yes -Procedure Performed Yes -Type of Procedure Debridement -Clinical Debridement Subcutaneous -Post Debridement Size (cm) - Length 9.0 -Post Debridement Size (cm) - Width 5.0 -Post Debridement Size (cm) - Depth 0.1 -Total Square Cm 45.00 -Wound/Ulcer Outcome Not Healed -Ulcer Cleansing Rinsed/ Irrigated with Saline -Foul Odor after Cleansing No -Bioengineered Tissue No -Bleeding Controlled with Pressure -Offloading No -Treatment Response Procedure Tolerated Well [See Physician Procedure note for Specifics] Pain Scale: 0-10 Numeric [Pain] -Is Patient Pain Free? Yes Musculoskeletal: No Tenderness to Palpation of Joints or Extremities Lymphatic: No Cervical, Supraclavicular, or Inguinal Adenopathy Neurological: Cranial nerves II-XII grossly intact, Neuro grossly intact Psych/Mental Status: Normal Affect, Appropriate, Alert and oriented to time, place, person, mood and affect Debridement Note Post-Debridement Measurements/Treatment WC - Nurse 2 - General Ulcer CM Notes Start: 02/09/19 10:39 Freq: Status: Active Protocol: Activity Type Activity Date Activity User E-Sign Co-Sign Detail Recorded Client Recorded Date Recorded By Document 02/09/19 11:07 MW [id number] 02/09/19 11:12 MW Document 02/16/19 11:17 MW [id number] 02/16/19 11:23 MW 02/09/19 02/16/19 11:07 11:17 Wound Center Nurse 2 #3- R MED LE CLUSTER -Time 11:08 11:17 -Correct Patient Yes Yes -Correct Side, Site, Position Yes Yes -Correct Procedure Yes Yes -Procedure Performed Yes Yes -Type of Procedure Debridement Debridement -Clinical Debridement Subcutaneous Subcutaneous -Post Debridement Size (cm) - Length 9.5 7.0 -Post Debridement Size (cm) - Width 4.5 3.5 -Post Debridement Size (cm) - Depth 0.1 0.1 -Total Square Cm 42.75 24.50 -Wound/Ulcer Outcome Not Healed Not Healed -Ulcer Cleansing Rinsed/ Rinsed/ Irrigated with Irrigated with Saline Saline -Foul Odor after Cleansing No No -Bioengineered Tissue No No -Bleeding Controlled with Pressure Pressure -Offloading No No -Treatment Response Procedure Procedure Tolerated Well Tolerated Well #2 right lateral LE -Time 11:08 11:17 -Correct Patient Yes Yes -Correct Side, Site, Position Yes Yes -Correct Procedure Yes Yes -Procedure Performed Yes Yes -Type of Procedure Debridement Debridement -Clinical Debridement Subcutaneous Subcutaneous -Post Debridement Size (cm) - Length 9.0 5.0 -Post Debridement Size (cm) - Width 5.0 5.0 -Post Debridement Size (cm) - Depth 0.1 0.1 -Total Square Cm 45.00 25.00 -Wound/Ulcer Outcome Not Healed Not Healed -Ulcer Cleansing Rinsed/ Rinsed/ Irrigated with Irrigated with Saline Saline -Foul Odor after Cleansing No No -Bioengineered Tissue No No -Bleeding Controlled with Pressure Pressure -Offloading No No -Treatment Response Procedure Procedure Tolerated Well Tolerated Well #1- L MEDIAL THIGH -Time 11:10 11:18 -Correct Patient Yes Yes -Correct Side, Site, Position Yes Yes -Correct Procedure Yes Yes -Procedure Performed Yes Yes -Type of Procedure Debridement Debridement -Clinical Debridement Subcutaneous Subcutaneous -Post Debridement Size (cm) - Length 9.0 9.0 -Post Debridement Size (cm) - Width 7.0 5.0 -Post Debridement Size (cm) - Depth 0.1 0.1 -Total Square Cm 63.00 45.00 -Wound/Ulcer Outcome Not Healed Not Healed -Ulcer Cleansing Rinsed/ Rinsed/ Irrigated with Irrigated with Saline Saline -Foul Odor after Cleansing No No -Bioengineered Tissue No No -Bleeding Controlled with Pressure Pressure -Offloading No No -Treatment Response Procedure Procedure Tolerated Well Tolerated Well Pain Scale: 0-10 Numeric Is Patient Pain Free? Yes Yes Wound debrided: Left upper thigh Type of Debridement: Excisional debridement Anesthesia Used: 5% Lidocaine Gel Depth: Down to and including healthy tissue Percentage of wound debrided: 100 Instrument Used: 7mm curette Tissue Removed: Fibrin Severity: Limited To Skin Breakdown Amount of bleeding with debridement: None Bleeding Controlled with: Compression and gauze Patient tolerated procedure well - Additional Wound Wound debrided: Right medial lower leg Type of Debridement: Excisional debridement Anesthesia Used: 5% Lidocaine Gel Depth: Down to and including healthy tissue Percentage of wound debrided: 100 Instrument Used: 7mm curette Tissue Removed: Fibrin Amount of bleeding with debridement: None Bleeding Controlled with: Pressure - Additional Wound Wound debrided: Right lateral leg Type of Debridement: Excisional debridement Depth: Down to and including healthy tissue Percentage of wound debrided: 100 Instrument Used: 7mm curette Tissue Removed: Fibrin Assessment/Plan Active Problems Superficial ulcer of skin (Acute) Assessment: Open wound left upper thigh cluster. Morbid obesity. Lymphedema Plan: Wash areas with antibacterial soap. Apply Aquacel extra dressings to the area cover with gauze. Wrap with compression wraps . Follow up in 1 week. Increase use of compression pump to 2 times a day wear over compression stockings
[2019-02-23 10:29] VITALS: BP 150/90; PULSE 80; RESP 18; TEMP 36.2; BMI 50.6
--- NOTE | 2019-02-23 11:49 | PN.PCM_ITS ---
(1) Lymphedema in adult patient Status: Acute Current Visit: Yes Code(s): I89.0 - Lymphedema, not elsewhere classified (2) Open wound of lower limb without complication Status: Acute Current Visit: Yes Code(s): S81.809A - Unspecified open wound, unspecified lower leg, initial encounter (3) Superficial ulcer of skin Status: Acute Current Visit: Yes Code(s): L98.491 - Non-pressure chronic ulcer of skin of other sites limited to breakdown of skin Type of Wound Date of Service: 02/23/19 Chief Complaint: Follow-up on open wounds of her left upper thigh History of Wound: 63-year-old white female that has severe lymphedema on arms and lower extremities. She goes to the lymphedema clinic at [facility] weekly. She also uses her pumps 1 hour a day. She sleeps in a recliner she also suffers from morbid obesity. She noted a blistering area on her left upper thigh with seepage. Progress of Wound: The the areas on the upper left thigh are healed right lateral lower leg is healed. Right wood is almost healed. No sign of infection continue to improve. Doing better with the compressions wraps and compression machine. - Physical Exam Vital Signs Temp Pulse Resp BP 97.1 F L 80 18 150/90 H 02/23/19 10:29 02/23/19 10:29 02/23/19 10:29 02/23/19 10:29 General: Oriented x3, Cooperative, Well developed HEENT: Atraumatic, PERRLA Oral: Moist Mucosa Neck: Supple, No JVD Lungs: Clear to auscultation, Normal air movement Cardiovascular: Regular rate, Regular Rhythm Abdomen: Bowel Sounds Present, Soft, Non Tender, No Hepato-splenomegaly Extremities: No clubbing, No edema Skin: Ulcer/ Wound - Superficial openings of the right wood Wound Measurements and Assessment WC - Nurse 1 - General Ulcer Measurement Start: 02/09/19 10:39 Freq: Status: Active Protocol: Activity Type Activity Date Activity User E-Sign Co-Sign Detail Recorded Client Recorded Date Recorded By Document 02/23/19 10:29 RB [id number] 02/23/19 10:41 RB 02/23/19 10:29 Wound Center Nurse 1 [Ulcer Assessment] #3- R MED LE CLUSTER -Combined with other wound No -Current Size (cm) - Length 8.2 -Current Size (cm) - Width 4.3 -Current Size (cm) - Depth 0.2 -Total Square Cm 35.26 -Tunneling No -Undermining/Tunneling No -Circular Undermining No -Exudate Amt Medium -Exudate Type Serosanguineous -Wound Margin Flat & Intact -Granulation Amt Medium (34-66%) -Granulation Quality [place] -Slough/Fibrin Yes -Necrosis Amt Medium (34-66%) -Necrotic Tissue Type Adherent Slough -Structure Exposed N/A -Texture (Marjan-wound Skin Appearance) Assessed -Moisture (Marjan-wound Skin Appearance Maceration ) -Color (Marjan-wound Skin Appearance) Erythema -Temperature (Marjan-wound Skin No Abnormality Appearance) (Pt Warm) -Tenderness on Palpation (Marjan-wound No Skin Appearance) -Ulcer Cleansing Wound Cleanser -Foul Odor after Cleansing No -Anesthetic Used 4% Lidocaine Solution #2 right lateral LE -Combined with other wound No -Current Size (cm) - Length 1.9 -Current Size (cm) - Width 1.9 -Current Size (cm) - Depth 0.1 -Total Square Cm 3.61 -Tunneling No -Undermining/Tunneling No -Circular Undermining No -Exudate Amt Medium -Exudate Type Serosanguineous -Wound Margin Flat & Intact -Granulation Amt Medium (34-66%) -Granulation Quality [place] -Slough/Fibrin Yes -Necrosis Amt Small (1-33%) -Necrotic Tissue Type Adherent Slough -Structure Exposed N/A -Texture (Marjan-wound Skin Appearance) Assessed -Moisture (Marjan-wound Skin Appearance Maceration ) -Color (Marjan-wound Skin Appearance) Erythema -Temperature (Marjan-wound Skin No Abnormality Appearance) (Pt Warm) -Tenderness on Palpation (Marjan-wound No Skin Appearance) -Ulcer Cleansing Wound Cleanser -Foul Odor after Cleansing No -Anesthetic Used 4% Lidocaine Solution #1- L MEDIAL THIGH -Combined with other wound No -Current Size (cm) - Length 8 -Current Size (cm) - Width 5.5 -Current Size (cm) - Depth 0.1 -Total Square Cm 44.0 -Tunneling No -Undermining/Tunneling No -Circular Undermining No -Exudate Amt Medium -Exudate Type Serosanguineous -Wound Margin Flat & Intact -Granulation Amt Medium (34-66%) -Granulation Quality [place] -Slough/Fibrin Yes -Necrosis Amt Small (1-33%) -Necrotic Tissue Type Adherent Slough -Structure Exposed N/A -Texture (Marjan-wound Skin Appearance) Assessed -Moisture (Marjan-wound Skin Appearance Maceration ) -Color (Marjan-wound Skin Appearance) Erythema -Temperature (Marjan-wound Skin No Abnormality Appearance) (Pt Warm) -Tenderness on Palpation (Marjan-wound No Skin Appearance) -Ulcer Cleansing Wound Cleanser -Foul Odor after Cleansing No -Anesthetic Used 4% Lidocaine Solution [Edema Assessment] -Lower Limb Edema Present Yes -Right Calf (cm) 69.3 -Right Ankle (cm) 35.3 -Left Calf (cm) 65.6 -Left Ankle (cm) 37.4 WC - Nurse 2 - General Ulcer CM Notes Start: 02/09/19 10:39 Freq: Status: Active Protocol: Activity Type Activity Date Activity User E-Sign Co-Sign Detail Recorded Client Recorded Date Recorded By Document 02/23/19 10:59 MW [id number] 02/23/19 11:02 MW 02/23/19 10:59 Wound Center Nurse 2 [Procedure/Treatment] #3- R MED LE CLUSTER -Time 11:01 -Correct Patient Yes -Correct Side, Site, Position Yes -Correct Procedure Yes -Procedure Performed Yes -Type of Procedure Debridement -Clinical Debridement Subcutaneous -Post Debridement Size (cm) - Length 9.5 -Post Debridement Size (cm) - Width 4.0 -Post Debridement Size (cm) - Depth 0.1 -Total Square Cm 38.00 -Wound/Ulcer Outcome Not Healed -Ulcer Cleansing Rinsed/ Irrigated with Saline -Foul Odor after Cleansing No -Bioengineered Tissue No -Bleeding Controlled with Pressure -Offloading No -Treatment Response Procedure Tolerated Well #2 right lateral LE -Time 11:00 -Correct Patient Yes -Correct Side, Site, Position Yes -Correct Procedure Yes -Procedure Performed No -Post Debridement Size (cm) - Length 0 -Post Debridement Size (cm) - Width 0 -Post Debridement Size (cm) - Depth 0 -Total Square Cm 0 -Wound/Ulcer Outcome Healed- Epithelialized #1- L MEDIAL THIGH -Time 11:00 -Correct Patient Yes -Correct Side, Site, Position Yes -Correct Procedure Yes -Procedure Performed No -Post Debridement Size (cm) - Length 0 -Post Debridement Size (cm) - Width 0 -Post Debridement Size (cm) - Depth 0 -Total Square Cm 0 -Wound/Ulcer Outcome Healed- Epithelialized [See Physician Procedure note for Specifics] Pain Scale: 0-10 Numeric [Pain] -Is Patient Pain Free? Yes Musculoskeletal: No Tenderness to Palpation of Joints or Extremities Lymphatic: No Cervical, Supraclavicular, or Inguinal Adenopathy Neurological: Cranial nerves II-XII grossly intact, Neuro grossly intact Psych/Mental Status: Normal Affect, Appropriate Debridement Note Post-Debridement Measurements/Treatment WC - Nurse 2 - General Ulcer CM Notes Start: 02/09/19 10:39 Freq: Status: Active Protocol: Activity Type Activity Date Activity User E-Sign Co-Sign Detail Recorded Client Recorded Date Recorded By Document 02/09/19 11:07 MW [id number] 02/09/19 11:12 MW Document 02/16/19 11:17 MW [id number] 02/16/19 11:23 MW Document 02/23/19 10:59 MW [id number] 02/23/19 11:02 MW 02/09/19 02/16/19 02/23/19 11:07 11:17 10:59 Wound Center Nurse 2 #3- R MED LE CLUSTER -Time 11:08 11:17 11:01 -Correct Patient Yes Yes Yes -Correct Side, Site, Position Yes Yes Yes -Correct Procedure Yes Yes Yes -Procedure Performed Yes Yes Yes -Type of Procedure Debridement Debridement Debridement -Clinical Debridement Subcutaneous Subcutaneous Subcutaneous -Post Debridement Size (cm) - Length 9.5 7.0 9.5 -Post Debridement Size (cm) - Width 4.5 3.5 4.0 -Post Debridement Size (cm) - Depth 0.1 0.1 0.1 -Total Square Cm 42.75 24.50 38.00 -Wound/Ulcer Outcome Not Healed Not Healed Not Healed -Ulcer Cleansing Rinsed/ Rinsed/ Rinsed/ Irrigated with Irrigated with Irrigated with Saline Saline Saline -Foul Odor after Cleansing No No No -Bioengineered Tissue No No No -Bleeding Controlled with Pressure Pressure Pressure -Offloading No No No -Treatment Response Procedure Procedure Procedure Tolerated Well Tolerated Well Tolerated Well #2 right lateral LE -Time 11:08 11:17 11:00 -Correct Patient Yes Yes Yes -Correct Side, Site, Position Yes Yes Yes -Correct Procedure Yes Yes Yes -Procedure Performed Yes Yes No -Type of Procedure Debridement Debridement -Clinical Debridement Subcutaneous Subcutaneous -Post Debridement Size (cm) - Length 9.0 5.0 0 -Post Debridement Size (cm) - Width 5.0 5.0 0 -Post Debridement Size (cm) - Depth 0.1 0.1 0 -Total Square Cm 45.00 25.00 0 -Wound/Ulcer Outcome Not Healed Not Healed Healed- Epithelialized -Ulcer Cleansing Rinsed/ Rinsed/ Irrigated with Irrigated with Saline Saline -Foul Odor after Cleansing No No -Bioengineered Tissue No No -Bleeding Controlled with Pressure Pressure -Offloading No No -Treatment Response Procedure Procedure Tolerated Well Tolerated Well #1- L MEDIAL THIGH -Time 11:10 11:18 11:00 -Correct Patient Yes Yes Yes -Correct Side, Site, Position Yes Yes Yes -Correct Procedure Yes Yes Yes -Procedure Performed Yes Yes No -Type of Procedure Debridement Debridement -Clinical Debridement Subcutaneous Subcutaneous -Post Debridement Size (cm) - Length 9.0 9.0 0 -Post Debridement Size (cm) - Width 7.0 5.0 0 -Post Debridement Size (cm) - Depth 0.1 0.1 0 -Total Square Cm 63.00 45.00 0 -Wound/Ulcer Outcome Not Healed Not Healed Healed- Epithelialized -Ulcer Cleansing Rinsed/ Rinsed/ Irrigated with Irrigated with Saline Saline -Foul Odor after Cleansing No No -Bioengineered Tissue No No -Bleeding Controlled with Pressure Pressure -Offloading No No -Treatment Response Procedure Procedure Tolerated Well Tolerated Well Pain Scale: 0-10 Numeric Is Patient Pain Free? Yes Yes Yes Wound debrided: Right wood Type of Debridement: Excisional debridement Anesthesia Used: 5% Lidocaine Gel Depth: Down to and including healthy tissue, in the subcutaneous layer Percentage of wound debrided: 100 Instrument Used: 7mm curette Tissue Removed: Urine Severity: Limited To Skin Breakdown Amount of bleeding with debridement: None Bleeding Controlled with: Compression and gauze Patient tolerated procedure well Assessment/Plan Active Problems Lymphedema in adult patient (Acute) Open wound of lower limb without complication (Acute) Superficial ulcer of skin (Acute) Assessment: Open wound left upper thigh cluster solved. Morbid obesity. Lymphedema. Superficial skin openings on right wood Plan: Wash areas with antibacterial soap. Apply Aquacel extra dressings to the area cover with gauze. Wrap with compression wraps . Follow up in 2 week. Increase use of compression pump to 2 times a day wear over compression stockings
== END 2019-03-08 23:59 ==
LOC: WC 10:30
PROVIDERS: Family Provider Physician Assistant Medical; PCP Physician Assistant Medical; Visit Provider Nurse Practitioner
DX: S70.322A Blister (nonthermal), left thigh, initial encounter (principal); X58.XXXA Exposure to other specified factors, initial encounter; I89.0 Lymphedema, not elsewhere classified; E66.01 Morbid (severe) obesity due to excess calories; Z68.44 Body mass index [BMI] 60.0-69.9, adult; Z71.3 Dietary counseling and surveillance; S81.801A Unspecified open wound, right lower leg, initial encounter; Z91.19 Patient's noncompliance with other medical treatment and regimen
CPT/HCPCS: 11042; 11045

== ENCOUNTER 2019-04-04 10:30 | Outpatient (RCR) | payer MEDICAID, SELFPAY ==
[2019-03-09 01:07] VITALS: BP 150/90; PULSE 80; RESP 18; TEMP 36.2
[2019-03-09 10:58] VITALS: BP 161/79; PULSE 81; RESP 24; TEMP 36.1; BMI 50.6
--- NOTE | 2019-03-09 12:33 | PCM.WC.PN ---
(1) Lymphedema in adult patient Status: Acute Current Visit: Yes Code(s): I89.0 - Lymphedema, not elsewhere classified (2) Morbid obesity with BMI of 60.0-69.9, adult Status: Acute Current Visit: Yes Code(s): E66.01 - Morbid (severe) obesity due to excess calories; Z68.44 - Body mass index (BMI) 60.0-69.9, adult (3) Open wound of lower limb without complication Status: Acute Current Visit: Yes Code(s): S81.809A - Unspecified open wound, unspecified lower leg, initial encounter (4) Superficial ulcer of skin Status: Acute Current Visit: Yes Code(s): L98.491 - Non-pressure chronic ulcer of skin of other sites limited to breakdown of skin Type of Wound Date of Service: 03/09/19 Chief Complaint: Follow-up on open wounds of her left upper thigh History of Wound: 63-year-old white female that has severe lymphedema on arms and lower extremities. She goes to the lymphedema clinic at [facility] weekly. She also uses her pumps 1 hour a day. She sleeps in a recliner she also suffers from morbid obesity. She noted a blistering area on her left upper thigh with seepage. Progress of Wound: The the areas on the upper left thigh are healed right lateral lower leg is healed. Right wood healed. No sign of infection continue to improve. Doing better with the compressions wraps and compression machine. Right medial lower leg cluster should be healed within the week - Physical Exam Vital Signs Temp Pulse Resp BP 96.9 F L 81 24 H 161/79 H 03/09/19 10:58 03/09/19 10:58 03/09/19 10:58 03/09/19 10:58 General: Oriented x3, Cooperative, Well developed HEENT: Atraumatic, PERRLA Oral: Moist Mucosa Neck: Supple, No JVD Lungs: Clear to auscultation, Normal air movement Cardiovascular: Regular rate, Regular Rhythm Abdomen: Bowel Sounds Present, Soft, Non Tender, No Hepato-splenomegaly Extremities: No clubbing, No edema Wound Measurements and Assessment WC - Nurse 1 - General Ulcer Measurement Start: 03/09/19 10:58 Freq: Status: Active Protocol: Activity Type Activity Date Activity User E-Sign Co-Sign Detail Recorded Client Recorded Date Recorded By Document 03/09/19 10:58 DL [id number] 03/09/19 11:10 DL 03/09/19 10:58 Wound Center Nurse 1 [Ulcer Assessment] #3- R MED LE CLUSTER -Current Size (cm) - Length 8.6 -Current Size (cm) - Width 3 -Current Size (cm) - Depth 0.1 -Total Square Cm 25.8 -Photo Taken No -Exudate Amt Medium -Exudate Type Serosanguineous -Wound Margin Indistinct, Non -Visible -Granulation Amt Medium (34-66%) -Granulation Quality [place] -Necrosis Amt Medium (34-66%) -Necrotic Tissue Type Adherent Slough -Structure Exposed N/A -Texture (Marjan-wound Skin Appearance) Excoriation, Localized Edema -Moisture (Marjan-wound Skin Appearance Weeping ) -Color (Marjan-wound Skin Appearance) Erythema,Rubor -Temperature (Marjan-wound Skin No Abnormality Appearance) (Pt Warm) -Tenderness on Palpation (Marjan-wound No Skin Appearance) -Ulcer Cleansing Wound Cleanser -Foul Odor after Cleansing No -Anesthetic Used 4% Lidocaine Solution [Edema Assessment] -Right Calf (cm) 69 -Right Ankle (cm) 38 WC - Nurse 2 - General Ulcer CM Notes Start: 03/09/19 10:58 Freq: Status: Active Protocol: Activity Type Activity Date Activity User E-Sign Co-Sign Detail Recorded Client Recorded Date Recorded By Document 03/09/19 11:44 MW [id number] 03/09/19 11:47 MW 03/09/19 11:44 Wound Center Nurse 2 [Procedure/Treatment] #3- R MED LE CLUSTER -Time 11:44 -Correct Patient Yes -Correct Side, Site, Position Yes -Correct Procedure Yes -Procedure Performed Yes -Type of Procedure Debridement -Clinical Debridement Selective -Post Debridement Size (cm) - Length 9.5 -Post Debridement Size (cm) - Width 3.5 -Post Debridement Size (cm) - Depth 0.1 -Total Square Cm 33.25 -Wound/Ulcer Outcome Not Healed -Ulcer Cleansing Not Cleansed -Foul Odor after Cleansing No -Bleeding Controlled with NA -Offloading No -Treatment Response Procedure Tolerated Well [See Physician Procedure note for Specifics] Pain Scale: 0-10 Numeric [Pain] -Is Patient Pain Free? Yes Musculoskeletal: No Tenderness to Palpation of Joints or Extremities Lymphatic: No Cervical, Supraclavicular, or Inguinal Adenopathy Neurological: Cranial nerves II-XII grossly intact, Neuro grossly intact Psych/Mental Status: Normal Affect, Appropriate, Alert and oriented to time, place, person, mood and affect Debridement Note Post-Debridement Measurements/Treatment WC - Nurse 2 - General Ulcer CM Notes Start: 03/09/19 10:58 Freq: Status: Active Protocol: Activity Type Activity Date Activity User E-Sign Co-Sign Detail Recorded Client Recorded Date Recorded By Document 03/09/19 11:44 MW [id number] 03/09/19 11:47 MW 03/09/19 11:44 Wound Center Nurse 2 #3- R MED LE CLUSTER -Time 11:44 -Correct Patient Yes -Correct Side, Site, Position Yes -Correct Procedure Yes -Procedure Performed Yes -Type of Procedure Debridement -Clinical Debridement Selective -Post Debridement Size (cm) - Length 9.5 -Post Debridement Size (cm) - Width 3.5 -Post Debridement Size (cm) - Depth 0.1 -Total Square Cm 33.25 -Wound/Ulcer Outcome Not Healed -Ulcer Cleansing Not Cleansed -Foul Odor after Cleansing No -Bleeding Controlled with NA -Offloading No -Treatment Response Procedure Tolerated Well Pain Scale: 0-10 Numeric Is Patient Pain Free? Yes Wound debrided: Right medial lower leg cluster Type of Debridement: Selective debridement Depth: Down to and including healthy tissue Percentage of wound debrided: 100 Instrument Used: 7mm curette Tissue Removed: Fibrin Amount of bleeding with debridement: Mild Patient tolerated procedure well Assessment/Plan Active Problems Morbid obesity with BMI of 60.0-69.9, adult (Acute) Lymphedema in adult patient (Acute) Open wound of lower limb without complication (Acute) Superficial ulcer of skin (Acute) Assessment: Open wound left upper thigh cluster solved. Morbid obesity. Lymphedema. Superficial skin openings on right wood resolved Plan: Wash areas with antibacterial soap. Apply Aquacel extra dressings to the area cover with gauze. Wrap with compression wraps . Follow up in 1 week. Increase use of compression pump to 2 times a day wear over compression stockings
[2019-03-16 10:50] VITALS: RESP 20; TEMP 36.3; BMI 50.6
--- NOTE | 2019-03-16 11:31 | PCM.WC.PN ---
(1) Lymphedema in adult patient Status: Acute Current Visit: Yes Code(s): I89.0 - Lymphedema, not elsewhere classified (2) Morbid obesity with BMI of 60.0-69.9, adult Status: Acute Current Visit: Yes Code(s): E66.01 - Morbid (severe) obesity due to excess calories; Z68.44 - Body mass index (BMI) 60.0-69.9, adult (3) Open wound of lower limb without complication Status: Acute Current Visit: Yes Code(s): S81.809A - Unspecified open wound, unspecified lower leg, initial encounter (4) Superficial ulcer of skin Status: Acute Current Visit: Yes Code(s): L98.491 - Non-pressure chronic ulcer of skin of other sites limited to breakdown of skin Type of Wound Date of Service: 03/16/19 Chief Complaint: Follow-up on open wounds of her left upper thigh History of Wound: 63-year-old white female that has severe lymphedema on arms and lower extremities. She goes to the lymphedema clinic at [facility] weekly. She also uses her pumps 1 hour a day. She sleeps in a recliner she also suffers from morbid obesity. She noted a blistering area on her left upper thigh with seepage. Progress of Wound: The areas on the left upper thigh the right wood and right lateral lower leg have all reopened. Patient states they have basically slacked off doing dressing changes to every other day and not putting on her compression stockings because they keep falling off. We had a long discussion with about compliance and that they need to finish this up because she was almost healed last week and then need to get the compression stockings on her or wraps and if they fall off they need to reapply. Dressing changes should be done daily. - Physical Exam Vital Signs Temp Pulse Resp BP 97.3 F L 81 20 H 161/79 H 03/16/19 10:50 03/09/19 10:58 03/16/19 10:50 03/09/19 10:58 General: Oriented x3, Cooperative, Well developed HEENT: Atraumatic, PERRLA Oral: Moist Mucosa Neck: Supple, No JVD Lungs: Clear to auscultation, Normal air movement Cardiovascular: Regular rate, Regular Rhythm Abdomen: Bowel Sounds Present, Soft, Non Tender, No Hepato-splenomegaly Extremities: No clubbing, No edema Skin: Ulcer/ Wound - Left and right lower extremities Wound Measurements and Assessment WC - Nurse 1 - General Ulcer Measurement Start: 03/09/19 10:58 Freq: Status: Active Protocol: Activity Type Activity Date Activity User E-Sign Co-Sign Detail Recorded Client Recorded Date Recorded By Document 03/16/19 10:50 [facility] [id number] 03/16/19 11:11 [facility] 03/16/19 10:50 Wound Center Nurse 1 [Ulcer Assessment] #3- R MED LE CLUSTER -Combined with other wound No -Current Size (cm) - Length 10.1 -Current Size (cm) - Width 5 -Current Size (cm) - Depth 0.1 -Total Square Cm 50.5 -Date of Last Picture (Recall this 03/16/19 field) -Photo Taken Yes -Epithelialization None Present -Tunneling No -Undermining/Tunneling No -Circular Undermining No -Exudate Amt Large -Exudate Type Serous -Wound Margin Distinct, Outline Attached -Granulation Amt Medium (34-66%) -Granulation Quality [place] -Slough/Fibrin Yes -Necrosis Amt Small (1-33%) -Necrotic Tissue Type Adherent Slough -Texture (Marjan-wound Skin Appearance) Assessed, Scarring -Moisture (Amrjan-wound Skin Appearance Assessed, ) Maceration, Weeping -Color (Marjan-wound Skin Appearance) Assessed, Erythema,Palor -Temperature (Marjan-wound Skin No Abnormality Appearance) (Pt Warm) -Tenderness on Palpation (Marjan-wound No Skin Appearance) -Ulcer Cleansing soapy water -Foul Odor after Cleansing No -Anesthetic Used 4% Lidocaine Solution #2 right lateral LE -Combined with other wound No -Current Size (cm) - Length 10.2 -Current Size (cm) - Width 4.5 -Current Size (cm) - Depth 0.1 -Total Square Cm 45.90 -Date of Last Picture (Recall this 03/16/19 field) -Photo Taken Yes -Epithelialization None Present -Tunneling No -Undermining/Tunneling No -Circular Undermining No -Exudate Amt Large -Exudate Type Serous -Wound Margin Distinct, Outline Attached -Granulation Amt Large (67-100%) -Granulation Quality [place] -Slough/Fibrin Yes -Necrosis Amt Small (1-33%) -Necrotic Tissue Type Adherent Slough -Texture (Marjan-wound Skin Appearance) Assessed, Scarring -Moisture (Marjan-wound Skin Appearance Assessed, ) Maceration, Weeping -Color (Marjan-wound Skin Appearance) Erythema,[place] -Temperature (Marjan-wound Skin No Abnormality Appearance) (Pt Warm) -Tenderness on Palpation (Marjan-wound No Skin Appearance) -Ulcer Cleansing soapy water -Foul Odor after Cleansing No -Anesthetic Used 4% Lidocaine Solution #1- L MEDIAL THIGH -Combined with other wound No -Current Size (cm) - Length 11.5 -Current Size (cm) - Width 5.5 -Current Size (cm) - Depth 0.1 -Total Square Cm 63.25 -Date of Last Picture (Recall this 03/16/19 field) -Photo Taken Yes -Epithelialization None Present -Tunneling No -Undermining/Tunneling No -Circular Undermining No -Exudate Amt Large -Exudate Type Serous -Wound Margin Flat & Intact -Granulation Amt Large (67-100%) -Granulation Quality N/A,[place] -Necrosis Amt Small (1-33%) -Necrotic Tissue Type Adherent Slough -Texture (Marjan-wound Skin Appearance) Assessed, Scarring -Moisture (Marjan-wound Skin Appearance Assessed, ) Maceration, Weeping -Color (Marjan-wound Skin Appearance) Erythema,[place] -Temperature (Marjan-wound Skin No Abnormality Appearance) (Pt Warm) -Tenderness on Palpation (Marjan-wound No Skin Appearance) -Ulcer Cleansing soapy water -Foul Odor after Cleansing No -Anesthetic Used 4% Lidocaine Solution [Edema Assessment] -Lower Limb Edema Present Yes -Right Calf (cm) 72 -Right Ankle (cm) 39.5 -Left Calf (cm) 68.5 -Left Ankle (cm) 39.4 Musculoskeletal: No Tenderness to Palpation of Joints or Extremities Lymphatic: No Cervical, Supraclavicular, or Inguinal Adenopathy Neurological: Cranial nerves II-XII grossly intact, Neuro grossly intact Psych/Mental Status: Normal Affect, Appropriate Debridement Note Post-Debridement Measurements/Treatment WC - Nurse 2 - General Ulcer CM Notes Start: 03/09/19 10:58 Freq: Status: Active Protocol: Activity Type Activity Date Activity User E-Sign Co-Sign Detail Recorded Client Recorded Date Recorded By Document 03/09/19 11:44 MW [id number] 03/09/19 11:47 MW 11/01/19 11:44 Wound Center Nurse 2 #3- R PASCALE CARRILLO CLUSTER -Time 11:44 -Correct Patient Yes -Correct Side, Site, Position Yes -Correct Procedure Yes -Procedure Performed Yes -Type of Procedure Debridement -Clinical Debridement Selective -Post Debridement Size (cm) - Length 9.5 -Post Debridement Size (cm) - Width 3.5 -Post Debridement Size (cm) - Depth 0.1 -Total Square Cm 33.25 -Wound/Ulcer Outcome Not Healed -Ulcer Cleansing Not Cleansed -Foul Odor after Cleansing No -Bleeding Controlled with NA -Offloading No -Treatment Response Procedure Tolerated Well Pain Scale: 0-10 Numeric Is Patient Pain Free? Yes Wound debrided: Left upper thigh Type of Debridement: Selective debridement Anesthesia Used: 5% Lidocaine Gel Depth: Down to and including healthy tissue, in the subcutaneous layer Percentage of wound debrided: 100 Instrument Used: - - Gauze Tissue Removed: Fibrin Severity: Limited To Skin Breakdown Amount of bleeding with debridement: None Patient tolerated procedure well - Additional Wound Wound debrided: Right medial lower leg cluster Type of Debridement: Selective debridement Anesthesia Used: 5% Lidocaine Gel Depth: Down to and including healthy tissue Percentage of wound debrided: 100 Instrument Used: - - Gauze Tissue Removed: Fibrin Severity: Limited To Skin Breakdown Amount of bleeding with debridement: None Bleeding Controlled with: Pressure Patient tolerated procedure: Patient tolerated procedure well - Additional Wound Wound debrided: Right lateral lower leg cluster Type of Debridement: Selective debridement Anesthesia Used: 5% Lidocaine Gel Depth: Down to and including healthy tissue Instrument Used: - Tissue Removed: Fibrin Severity: Limited To Skin Breakdown Amount of bleeding with debridement: None Patient tolerated procedure: Patient tolerated procedure well Assessment/Plan Active Problems Morbid obesity with BMI of 60.0-69.9, adult (Acute) Lymphedema in adult patient (Acute) Open wound of lower limb without complication (Acute) Superficial ulcer of skin (Acute) Assessment: Open wound left upper thigh cluster solved. Morbid obesity. Lymphedema. Superficial skin openings on right wood resolved Plan: Wash areas with antibacterial soap. Apply Aquacel extra dressings to the area cover with gauze. Wrap with compression wraps . Follow up in 1 week. Increase use of compression pump to 2 times a day wear over compression stockings
[2019-03-21 10:37] VITALS: BP 179/100; PULSE 81; RESP 20; TEMP 36.1; BMI 50.6
--- NOTE | 2019-03-21 11:09 | PN.PCM_ITS ---
(1) Lymphedema in adult patient Status: Acute Current Visit: Yes Code(s): I89.0 - Lymphedema, not elsewhere classified (2) Morbid obesity with BMI of 60.0-69.9, adult Status: Acute Current Visit: Yes Code(s): E66.01 - Morbid (severe) obesity due to excess calories; Z68.44 - Body mass index (BMI) 60.0-69.9, adult (3) Open wound of lower limb without complication Status: Acute Current Visit: Yes Code(s): S81.809A - Unspecified open wound, unspecified lower leg, initial encounter (4) Superficial ulcer of skin Status: Acute Current Visit: Yes Code(s): L98.491 - Non-pressure chronic ulcer of skin of other sites limited to breakdown of skin Type of Wound Date of Service: 03/21/19 Chief Complaint: Follow-up on open wounds of her left upper thigh History of Wound: 63-year-old white female that has severe lymphedema on arms and lower extremities. She goes to the lymphedema clinic at [facility] weekly. She also uses her pumps 1 hour a day. She sleeps in a recliner she also suffers from morbid obesity. She noted a blistering area on her left upper thigh with seepage. Progress of Wound: The areas on the left upper thigh the right wood and right lateral lower leg have all reopened. The areas are now closing they have been better about using there wraps. You are going to follow-up in 2 more weeks to make sure they are all healed pretty much they are almost closed. She is going to buy a single bed so she can sleep in a bed not in a chair which is really good. - Physical Exam Vital Signs Temp Pulse Resp BP 97 F L 81 20 H 179/100 H 03/21/19 10:37 03/21/19 10:37 03/21/19 10:37 03/21/19 10:37 General: Oriented x3, Cooperative, Well developed HEENT: Atraumatic, PERRLA Oral: Moist Mucosa Neck: Supple, No JVD Lungs: Clear to auscultation, Normal air movement Cardiovascular: Regular rate, Regular Rhythm Abdomen: Bowel Sounds Present, Soft, Non Tender, No Hepato-splenomegaly Extremities: No clubbing, No edema Skin: Ulcer/ Wound - Listers that turned to ulcers Wound Measurements and Assessment WC - Nurse 1 - General Ulcer Measurement Start: 03/09/19 10:58 Freq: Status: Active Protocol: Activity Type Activity Date Activity User E-Sign Co-Sign Detail Recorded Client Recorded Date Recorded By Document 03/21/19 10:37 [facility] [id number] 03/21/19 10:49 [facility] 03/21/19 10:37 Wound Center Nurse 1 [Ulcer Assessment] #3- R MED LE CLUSTER -Combined with other wound No -Current Size (cm) - Length 8.8 -Current Size (cm) - Width 5 -Current Size (cm) - Depth 0.1 -Total Square Cm 44.0 -Tunneling No -Undermining/Tunneling No -Circular Undermining No -Exudate Amt Small -Exudate Type Serosanguineous -Wound Margin Flat & Intact -Granulation Amt Medium (34-66%) -Granulation Quality [place],Red -Slough/Fibrin Yes -Necrosis Amt Small (1-33%) -Necrotic Tissue Type Adherent Slough -Structure Exposed N/A -Texture (Marjan-wound Skin Appearance) Assessed -Moisture (Marjan-wound Skin Appearance Assessed ) -Color (Marjan-wound Skin Appearance) Assessed -Temperature (Marjan-wound Skin No Abnormality Appearance) (Pt Warm) -Tenderness on Palpation (Marjan-wound No Skin Appearance) -Ulcer Cleansing Wound Cleanser -Foul Odor after Cleansing No -Anesthetic Used 4% Lidocaine Solution #2 right lateral LE -Combined with other wound No -Current Size (cm) - Length 1.5 -Current Size (cm) - Width 1.5 -Current Size (cm) - Depth 0.1 -Total Square Cm 2.25 -Tunneling No -Undermining/Tunneling No -Circular Undermining No -Exudate Amt Small -Exudate Type Serosanguineous -Wound Margin Flat & Intact -Granulation Amt Medium (34-66%) -Granulation Quality [place],Red -Slough/Fibrin Yes -Necrosis Amt Small (1-33%) -Necrotic Tissue Type Adherent Slough -Structure Exposed N/A -Texture (Marjan-wound Skin Appearance) Assessed -Moisture (Marjan-wound Skin Appearance Assessed ) -Color (Marjan-wound Skin Appearance) Assessed -Temperature (Marjan-wound Skin No Abnormality Appearance) (Pt Warm) -Tenderness on Palpation (Marjan-wound No Skin Appearance) -Ulcer Cleansing Wound Cleanser -Foul Odor after Cleansing No -Anesthetic Used 4% Lidocaine Solution #1- L MEDIAL THIGH -Combined with other wound No -Current Size (cm) - Length 7.3 -Current Size (cm) - Width 7.4 -Current Size (cm) - Depth 0.1 -Total Square Cm 54.02 -Tunneling No -Undermining/Tunneling No -Circular Undermining No -Exudate Amt Small -Exudate Type Serosanguineous -Wound Margin Flat & Intact -Granulation Amt Medium (34-66%) -Granulation Quality [place],Red -Slough/Fibrin Yes -Necrosis Amt Small (1-33%) -Necrotic Tissue Type Adherent Slough -Structure Exposed N/A -Texture (Marjan-wound Skin Appearance) Assessed -Moisture (Marjan-wound Skin Appearance Assessed ) -Color (Marjan-wound Skin Appearance) Assessed, Erythema -Temperature (Marjan-wound Skin No Abnormality Appearance) (Pt Warm) -Tenderness on Palpation (Marjan-wound No Skin Appearance) -Ulcer Cleansing Wound Cleanser -Foul Odor after Cleansing No -Anesthetic Used 4% Lidocaine Solution [Edema Assessment] -Lower Limb Edema Present Yes -Right Calf (cm) 71.3 -Right Ankle (cm) 37.8 -Left Calf (cm) 65.7 -Left Ankle (cm) 37.5 WC - Nurse 2 - General Ulcer CM Notes Start: 03/09/19 10:58 Freq: Status: Active Protocol: Activity Type Activity Date Activity User E-Sign Co-Sign Detail Recorded Client Recorded Date Recorded By Document 03/21/19 11:01 MW [id number] 03/21/19 11:06 MW 03/21/19 11:01 Wound Center Nurse 2 [Procedure/Treatment] #3- R MED LE CLUSTER -Time 11:02 -Correct Patient Yes -Correct Side, Site, Position Yes -Correct Procedure Yes -Procedure Performed No -Wound/Ulcer Outcome Not Healed -Ulcer Cleansing Rinsed/ Irrigated with Saline -Foul Odor after Cleansing No -Bleeding Controlled with NA -Offloading No -Treatment Response Procedure Tolerated Well #2 right lateral LE -Time 11:03 -Correct Patient Yes -Correct Side, Site, Position Yes -Correct Procedure Yes -Procedure Performed No -Wound/Ulcer Outcome Not Healed -Ulcer Cleansing Rinsed/ Irrigated with Saline -Foul Odor after Cleansing No -Bleeding Controlled with Pressure -Offloading No -Treatment Response Procedure Tolerated Well #1- L MEDIAL THIGH -Time 11:03 -Correct Patient Yes -Correct Side, Site, Position Yes -Correct Procedure Yes -Procedure Performed No -Wound/Ulcer Outcome Not Healed -Ulcer Cleansing Rinsed/ Irrigated with Saline -Foul Odor after Cleansing No -Bioengineered Tissue No -Bleeding Controlled with Pressure -Offloading No -Treatment Response Procedure Tolerated Well [See Physician Procedure note for Specifics] Pain Scale: 0-10 Numeric [Pain] -Is Patient Pain Free? Yes Musculoskeletal: No Tenderness to Palpation of Joints or Extremities Lymphatic: No Cervical, Supraclavicular, or Inguinal Adenopathy Neurological: Cranial nerves II-XII grossly intact, Neuro grossly intact Psych/Mental Status: Normal Affect, Appropriate Debridement Note Post-Debridement Measurements/Treatment WC - Nurse 2 - General Ulcer CM Notes Start: 03/09/19 10:58 Freq: Status: Active Protocol: Activity Type Activity Date Activity User E-Sign Co-Sign Detail Recorded Client Recorded Date Recorded By Document 03/09/19 11:44 MW [id number] 03/09/19 11:47 MW Document 03/16/19 11:29 MW [id number] 03/16/19 11:31 MW Document 03/21/19 11:01 MW [id number] 03/21/19 11:06 MW 03/09/19 03/16/19 03/21/19 11:44 11:29 11:01 Wound Center Nurse 2 #3- R MED LE CLUSTER -Time 11:44 11:29 11:02 -Correct Patient Yes Yes Yes -Correct Side, Site, Position Yes Yes Yes -Correct Procedure Yes Yes Yes -Procedure Performed Yes Yes No -Type of Procedure Debridement Debridement -Clinical Debridement Selective Subcutaneous -Post Debridement Size (cm) - Length 9.5 10.0 -Post Debridement Size (cm) - Width 3.5 4.5 -Post Debridement Size (cm) - Depth 0.1 0.1 -Total Square Cm 33.25 45.00 -Wound/Ulcer Outcome Not Healed Not Healed Not Healed -Ulcer Cleansing Not Cleansed Rinsed/ Rinsed/ Irrigated with Irrigated with Saline Saline -Foul Odor after Cleansing No No No -Bioengineered Tissue No -Bleeding Controlled with NA Pressure NA -Offloading No No No -Treatment Response Procedure Procedure Procedure Tolerated Well Tolerated Well Tolerated Well #2 right lateral LE -Time 11:30 11:03 -Correct Patient Yes Yes -Correct Side, Site, Position Yes Yes -Correct Procedure Yes Yes -Procedure Performed Yes No -Type of Procedure Debridement -Clinical Debridement Subcutaneous -Post Debridement Size (cm) - Length 8.5 -Post Debridement Size (cm) - Width 4.0 -Post Debridement Size (cm) - Depth 0.1 -Total Square Cm 34.00 -Wound/Ulcer Outcome Not Healed Not Healed -Ulcer Cleansing Rinsed/ Rinsed/ Irrigated with Irrigated with Saline Saline -Foul Odor after Cleansing No No -Bioengineered Tissue No -Bleeding Controlled with Pressure Pressure -Offloading No No -Treatment Response Procedure Procedure Tolerated Well Tolerated Well #1- L MEDIAL THIGH -Time 11:30 11:03 -Correct Patient Yes Yes -Correct Side, Site, Position Yes Yes -Correct Procedure Yes Yes -Procedure Performed Yes No -Type of Procedure Debridement -Clinical Debridement Subcutaneous -Post Debridement Size (cm) - Length 10.0 -Post Debridement Size (cm) - Width 7.0 -Post Debridement Size (cm) - Depth 0.1 -Total Square Cm 70.00 -Wound/Ulcer Outcome Not Healed Not Healed -Ulcer Cleansing Rinsed/ Rinsed/ Irrigated with Irrigated with Saline Saline -Foul Odor after Cleansing No No -Bioengineered Tissue No No -Bleeding Controlled with Pressure Pressure -Offloading No No -Treatment Response Procedure Procedure Tolerated Well Tolerated Well Pain Scale: 0-10 Numeric Is Patient Pain Free? Yes Yes Yes No debridement was completed today Assessment/Plan Active Problems Morbid obesity with BMI of 60.0-69.9, adult (Acute) Lymphedema in adult patient (Acute) Open wound of lower limb without complication (Acute) Superficial ulcer of skin (Acute) Assessment: Open wound left upper thigh cluster solved. Morbid obesity. Lymphedema. Superficial skin openings on right wood resolved Plan: Wash areas with antibacterial soap. Apply Aquacel extra dressings to the area cover with gauze. Wrap with compression wraps . Follow up in 2 week. Increase use of compression pump to 2 times a day wear over compression stockings
[2019-04-04 10:36] VITALS: BP 158/98; PULSE 101; RESP 20; TEMP 36.6; BMI 50.6
--- NOTE | 2019-04-04 11:17 | PCM.WC.PN ---
(1) Lymphedema in adult patient Status: Acute Current Visit: Yes Code(s): I89.0 - Lymphedema, not elsewhere classified (2) Morbid obesity with BMI of 60.0-69.9, adult Status: Acute Current Visit: Yes Code(s): E66.01 - Morbid (severe) obesity due to excess calories; Z68.44 - Body mass index (BMI) 60.0-69.9, adult (3) Open wound of lower limb without complication Status: Acute Current Visit: Yes Code(s): S81.809A - Unspecified open wound, unspecified lower leg, initial encounter (4) Superficial ulcer of skin Status: Acute Current Visit: Yes Code(s): L98.491 - Non-pressure chronic ulcer of skin of other sites limited to breakdown of skin Type of Wound Date of Service: 04/04/19 Chief Complaint: Follow-up on open wounds of her left upper thigh History of Wound: 63-year-old white female that has severe lymphedema on arms and lower extremities. She goes to the lymphedema clinic at [facility] weekly. She also uses her pumps 1 hour a day. She sleeps in a recliner she also suffers from morbid obesity. She noted a blistering area on her left upper thigh with seepage. Progress of Wound: The areas on the left upper thigh the right wood and right lateral lower leg have all reopened. The areas are now closing they have been better about using there wraps. She is going to buy a single bed so she can sleep in a bed not in a chair which is really good. - Physical Exam Vital Signs Temp Pulse Resp BP 97.8 F 101 H 20 H 158/98 H 04/04/19 10:36 04/04/19 10:36 04/04/19 10:36 04/04/19 10:36 General: Oriented x3, Cooperative, Well developed HEENT: Atraumatic, PERRLA Oral: Moist Mucosa Neck: Supple, No JVD Lungs: Clear to auscultation, Normal air movement Cardiovascular: Regular rate, Regular Rhythm Abdomen: Bowel Sounds Present, Soft, Non Tender, No Hepato-splenomegaly Extremities: No clubbing, No edema Skin: Ulcer/ Wound Wound Measurements and Assessment WC - Nurse 1 - General Ulcer Measurement Start: 03/09/19 10:58 Freq: Status: Active Protocol: Activity Type Activity Date Activity User E-Sign Co-Sign Detail Recorded Client Recorded Date Recorded By Document 04/04/19 10:36 RB [id number] 04/04/19 10:55 RB 04/04/19 10:36 Wound Center Nurse 1 [Ulcer Assessment] #3- R MED LE CLUSTER -Combined with other wound No -Current Size (cm) - Length 11 -Current Size (cm) - Width 11.5 -Current Size (cm) - Depth 0.1 -Total Square Cm 126.5 -Tunneling No -Undermining/Tunneling No -Circular Undermining No -Exudate Amt Large -Exudate Type Serosanguineous -Wound Margin Flat & Intact -Granulation Amt Medium (34-66%) -Granulation Quality Boyd -Slough/Fibrin Yes -Necrosis Amt Medium (34-66%) -Necrotic Tissue Type Adherent Slough -Structure Exposed N/A -Texture (Marjan-wound Skin Appearance) Assessed, Excoriation, Friable -Moisture (Marjan-wound Skin Appearance Assessed, ) Maceration, Weeping -Color (Marjan-wound Skin Appearance) Assessed -Temperature (Marjan-wound Skin No Abnormality Appearance) (Pt Warm) -Tenderness on Palpation (Marjan-wound No Skin Appearance) -Ulcer Cleansing Wound Cleanser -Foul Odor after Cleansing No -Anesthetic Used 4% Lidocaine Solution #2 right lateral LE -Combined with other wound No -Current Size (cm) - Length 0.1 -Current Size (cm) - Width 0.1 -Current Size (cm) - Depth 0.1 -Total Square Cm 0.01 -Tunneling No -Undermining/Tunneling No -Circular Undermining No -Exudate Amt Small -Exudate Type Serosanguineous -Wound Margin Flat & Intact -Granulation Amt Medium (34-66%) -Granulation Quality Boyd -Slough/Fibrin Yes -Necrosis Amt Medium (34-66%) -Necrotic Tissue Type Adherent Slough -Structure Exposed N/A -Texture (Marjan-wound Skin Appearance) Assessed, Friable -Moisture (Marjan-wound Skin Appearance Weeping ) -Color (Marjan-wound Skin Appearance) Assessed -Temperature (Marjan-wound Skin No Abnormality Appearance) (Pt Warm) -Tenderness on Palpation (Marjan-wound No Skin Appearance) -Ulcer Cleansing Wound Cleanser -Foul Odor after Cleansing No -Anesthetic Used 4% Lidocaine Solution #1- L MEDIAL THIGH -Combined with other wound No -Current Size (cm) - Length 9 -Current Size (cm) - Width 8 -Current Size (cm) - Depth 0.1 -Total Square Cm 72 -Tunneling No -Undermining/Tunneling No -Circular Undermining No -Exudate Amt Large -Exudate Type Serosanguineous -Wound Margin Flat & Intact -Granulation Amt Medium (34-66%) -Granulation Quality Boyd -Slough/Fibrin Yes -Necrosis Amt Medium (34-66%) -Necrotic Tissue Type Adherent Slough -Structure Exposed N/A -Texture (Marjan-wound Skin Appearance) Assessed, Friable -Moisture (Marjan-wound Skin Appearance Assessed, ) Maceration, Weeping -Color (Marjan-wound Skin Appearance) Assessed -Temperature (Marjan-wound Skin No Abnormality Appearance) (Pt Warm) -Tenderness on Palpation (Marjan-wound No Skin Appearance) -Ulcer Cleansing Wound Cleanser -Foul Odor after Cleansing No -Anesthetic Used 4% Lidocaine Solution [Edema Assessment] -Lower Limb Edema Present Yes -Right Calf (cm) 73.5 -Right Ankle (cm) 38.5 -Left Calf (cm) 68 -Left Ankle (cm) 37 WC - Nurse 2 - General Ulcer CM Notes Start: 03/09/19 10:58 Freq: Status: Active Protocol: Activity Type Activity Date Activity User E-Sign Co-Sign Detail Recorded Client Recorded Date Recorded By Document 04/04/19 10:59 MW [id number] 04/04/19 11:02 MW 04/04/19 10:59 Wound Center Nurse 2 [Procedure/Treatment] #3- R MED LE CLUSTER -Time 11:00 -Correct Patient Yes -Correct Side, Site, Position Yes -Correct Procedure Yes -Procedure Performed Yes -Type of Procedure Debridement -Clinical Debridement Subcutaneous -Post Debridement Size (cm) - Length 13.0 -Post Debridement Size (cm) - Width 11.0 -Post Debridement Size (cm) - Depth 0.1 -Total Square Cm 143.00 -Wound/Ulcer Outcome Not Healed -Ulcer Cleansing Rinsed/ Irrigated with Saline -Foul Odor after Cleansing No -Bioengineered Tissue No -Bleeding Controlled with Pressure -Offloading No -Treatment Response Procedure Tolerated Well #2 right [facility] LE -Time 11:00 -Correct Patient Yes -Correct Side, Site, Position Yes -Correct Procedure Yes -Procedure Performed No -Post Debridement Size (cm) - Length 0 -Post Debridement Size (cm) - Width 0 -Post Debridement Size (cm) - Depth 0 -Total Square Cm 0 -Wound/Ulcer Outcome Healed- Epithelialized #1- L MEDIAL THIGH -Time 11:01 -Correct Patient Yes -Correct Side, Site, Position Yes -Correct Procedure Yes -Procedure Performed Yes -Type of Procedure Debridement -Clinical Debridement Subcutaneous -Post Debridement Size (cm) - Length 3.0 -Post Debridement Size (cm) - Width 3.0 -Post Debridement Size (cm) - Depth 0.1 -Total Square Cm 9.00 -Wound/Ulcer Outcome Not Healed -Ulcer Cleansing Rinsed/ Irrigated with Saline -Foul Odor after Cleansing No -Bioengineered Tissue No -Bleeding Controlled with Pressure -Offloading No -Treatment Response Procedure Tolerated Well [See Physician Procedure note for Specifics] Pain Scale: 0-10 Numeric [Pain] -Is Patient Pain Free? Yes Musculoskeletal: No Tenderness to Palpation of Joints or Extremities Lymphatic: No Cervical, Supraclavicular, or Inguinal Adenopathy Neurological: Cranial nerves II-XII grossly intact, Neuro grossly intact Psych/Mental Status: Normal Affect, Appropriate Debridement Note Post-Debridement Measurements/Treatment WC - Nurse 2 - General Ulcer CM Notes Start: 03/09/19 10:58 Freq: Status: Active Protocol: Activity Type Activity Date Activity User E-Sign Co-Sign Detail Recorded Client Recorded Date Recorded By Document 03/09/19 11:44 MW [id number] 03/09/19 11:47 MW Document 03/16/19 11:29 MW [id number] 03/16/19 11:31 MW Document 03/21/19 11:01 MW [id number] 03/21/19 11:06 MW Document 04/04/19 10:59 MW [id number] 04/04/19 11:02 MW 03/09/19 03/16/19 03/21/19 11:44 11:29 11:01 Wound Center Nurse 2 #3- R MED LE CLUSTER -Time 11:44 11:29 11:02 -Correct Patient Yes Yes Yes -Correct Side, Site, Position Yes Yes Yes -Correct Procedure Yes Yes Yes -Procedure Performed Yes Yes No -Type of Procedure Debridement Debridement -Clinical Debridement Selective Subcutaneous -Post Debridement Size (cm) - Length 9.5 10.0 -Post Debridement Size (cm) - Width 3.5 4.5 -Post Debridement Size (cm) - Depth 0.1 0.1 -Total Square Cm 33.25 45.00 -Wound/Ulcer Outcome Not Healed Not Healed Not Healed -Ulcer Cleansing Not Cleansed Rinsed/ Rinsed/ Irrigated with Irrigated with Saline Saline -Foul Odor after Cleansing No No No -Bioengineered Tissue No -Bleeding Controlled with NA Pressure NA -Offloading No No No -Treatment Response Procedure Procedure Procedure Tolerated Well Tolerated Well Tolerated Well #2 right lateral LE -Time 11: 11:03 -Correct Patient Yes Yes -Correct Side, Site, Position Yes Yes -Correct Procedure Yes Yes -Procedure Performed Yes No -Type of Procedure Debridement -Clinical Debridement Subcutaneous -Post Debridement Size (cm) - Length 8.5 -Post Debridement Size (cm) - Width 4.0 -Post Debridement Size (cm) - Depth 0.1 -Total Square Cm 34.00 -Wound/Ulcer Outcome Not Healed Not Healed -Ulcer Cleansing Rinsed/ Rinsed/ Irrigated with Irrigated with Saline Saline -Foul Odor after Cleansing No No -Bioengineered Tissue No -Bleeding Controlled with Pressure Pressure -Offloading No No -Treatment Response Procedure Procedure Tolerated Well Tolerated Well #1- L MEDIAL THIGH -Time 11: 11:03 -Correct Patient Yes Yes -Correct Side, Site, Position Yes Yes -Correct Procedure Yes Yes -Procedure Performed Yes No -Type of Procedure Debridement -Clinical Debridement Subcutaneous -Post Debridement Size (cm) - Length 10.0 -Post Debridement Size (cm) - Width 7.0 -Post Debridement Size (cm) - Depth 0.1 -Total Square Cm 70.00 -Wound/Ulcer Outcome Not Healed Not Healed -Ulcer Cleansing Rinsed/ Rinsed/ Irrigated with Irrigated with Saline Saline -Foul Odor after Cleansing No No -Bioengineered Tissue No No -Bleeding Controlled with Pressure Pressure -Offloading No No -Treatment Response Procedure Procedure Tolerated Well Tolerated Well Pain Scale: 0-10 Numeric Is Patient Pain Free? Yes Yes Yes 04/04/19 10:59 Wound Center Nurse 2 #3- R MED LE CLUSTER -Time 11:00 -Correct Patient Yes -Correct Side, Site, Position Yes -Correct Procedure Yes -Procedure Performed Yes -Type of Procedure Debridement -Clinical Debridement Subcutaneous -Post Debridement Size (cm) - Length 13.0 -Post Debridement Size (cm) - Width 11.0 -Post Debridement Size (cm) - Depth 0.1 -Total Square Cm 143.00 -Wound/Ulcer Outcome Not Healed -Ulcer Cleansing Rinsed/ Irrigated with Saline -Foul Odor after Cleansing No -Bioengineered Tissue No -Bleeding Controlled with Pressure -Offloading No -Treatment Response Procedure Tolerated Well #2 right lateral LE -Time 11:00 -Correct Patient Yes -Correct Side, Site, Position Yes -Correct Procedure Yes -Procedure Performed No -Type of Procedure -Clinical Debridement -Post Debridement Size (cm) - Length 0 -Post Debridement Size (cm) - Width 0 -Post Debridement Size (cm) - Depth 0 -Total Square Cm 0 -Wound/Ulcer Outcome Healed- Epithelialized -Ulcer Cleansing -Foul Odor after Cleansing -Bioengineered Tissue -Bleeding Controlled with -Offloading -Treatment Response #1- L MEDIAL THIGH -Time 11:01 -Correct Patient Yes -Correct Side, Site, Position Yes -Correct Procedure Yes -Procedure Performed Yes -Type of Procedure Debridement -Clinical Debridement Subcutaneous -Post Debridement Size (cm) - Length 3.0 -Post Debridement Size (cm) - Width 3.0 -Post Debridement Size (cm) - Depth 0.1 -Total Square Cm 9.00 -Wound/Ulcer Outcome Not Healed -Ulcer Cleansing Rinsed/ Irrigated with Saline -Foul Odor after Cleansing No -Bioengineered Tissue No -Bleeding Controlled with Pressure -Offloading No -Treatment Response Procedure Tolerated Well Pain Scale: 0-10 Numeric Is Patient Pain Free? Yes Wound debrided: Left upper inner thigh cluster Type of Debridement: Excisional debridement Anesthesia Used: 5% Lidocaine Gel Depth: Down to and including healthy tissue, in the subcutaneous layer Percentage of wound debrided: 100 Instrument Used: 7mm curette Tissue Removed: Fibrin Severity: Limited To Skin Breakdown Amount of bleeding with debridement: None Bleeding Controlled with: Pressure Patient tolerated procedure well - Additional Wound Wound debrided: Right lower medial cluster Type of Debridement: Excisional debridement Anesthesia Used: 5% Lidocaine Gel Depth: Down to and including healthy tissue, in the subcutaneous layer Percentage of wound debrided: 100 Instrument Used: 7mm curette Tissue Removed: Fibrin Severity: Limited To Skin Breakdown Amount of bleeding with debridement: None Bleeding Controlled with: Pressure Patient tolerated procedure: Patient tolerated procedure well Assessment/Plan Active Problems Morbid obesity with BMI of 60.0-69.9, adult (Acute) Lymphedema in adult patient (Acute) Open wound of lower limb without complication (Acute) Superficial ulcer of skin (Acute) Assessment: Open wound left upper thigh cluster solved. Morbid obesity. Lymphedema. Superficial skin openings on right wood resolved Plan: Wash areas with antibacterial soap. Apply Aquacel extra dressings to the area cover with gauze. Wrap with compression wraps . Follow up in 1 week. Increase use of compression pump to 2 times a day wear over compression stockings
== END 2019-04-07 23:59 ==
LOC: WC 10:30
PROVIDERS: Family Provider Physician Assistant Medical; PCP Physician Assistant Medical; Visit Provider Nurse Practitioner
DX: S70.322A Blister (nonthermal), left thigh, initial encounter (principal); X58.XXXA Exposure to other specified factors, initial encounter; I89.0 Lymphedema, not elsewhere classified; E66.01 Morbid (severe) obesity due to excess calories; Z68.44 Body mass index [BMI] 60.0-69.9, adult; Z71.3 Dietary counseling and surveillance; S81.801A Unspecified open wound, right lower leg, initial encounter; Z91.19 Patient's noncompliance with other medical treatment and regimen
CPT/HCPCS: 11042; 11045; 97597; 97598; 99214; G0463

== ENCOUNTER 2019-04-25 10:00 | Outpatient (RCR) | payer MEDICAID, SELFPAY ==
[2019-04-08 00:51] VITALS: BP 158/98; PULSE 101; RESP 20; TEMP 36.6
[2019-04-11 10:29] VITALS: BP 169/103; PULSE 97; RESP 22; TEMP 36.1; BMI 50.6
--- NOTE | 2019-04-11 11:26 | PCM.WC.PN ---
(1) Lymphedema in adult patient Status: Acute Current Visit: Yes Code(s): I89.0 - Lymphedema, not elsewhere classified (2) Morbid obesity with BMI of 60.0-69.9, adult Status: Acute Current Visit: Yes Code(s): E66.01 - Morbid (severe) obesity due to excess calories; Z68.44 - Body mass index (BMI) 60.0-69.9, adult (3) Open wound of lower limb without complication Status: Acute Current Visit: Yes Code(s): S81.809A - Unspecified open wound, unspecified lower leg, initial encounter (4) Superficial ulcer of skin Status: Acute Current Visit: Yes Code(s): L98.491 - Non-pressure chronic ulcer of skin of other sites limited to breakdown of skin Type of Wound Date of Service: 04/11/19 Chief Complaint: Follow-up on open wounds of her left upper thigh History of Wound: 63-year-old white female that has severe lymphedema on arms and lower extremities. She goes to the lymphedema clinic at [facility] weekly. She also uses her pumps 1 hour a day. She sleeps in a recliner she also suffers from morbid obesity. She noted a blistering area on her left upper thigh with seepage. Progress of Wound: The areas on the left upper thigh healed and the right wood and right lateral lower leg. The R medial leg is still open superficially. The areas are now closing they have been better about using there wraps. She is going to buy a single bed so she can sleep in a bed not in a chair which is really good. - Physical Exam Vital Signs Temp Pulse Resp BP 97 F L 97 22 H 169/103 H 04/11/19 10:29 04/11/19 10:29 04/11/19 10:29 04/11/19 10:29 General: Oriented x3, Cooperative, Well developed HEENT: Atraumatic, PERRLA Oral: Moist Mucosa Neck: Supple, No JVD Lungs: Clear to auscultation, Normal air movement Cardiovascular: Regular rate, Regular Rhythm Abdomen: Bowel Sounds Present, Soft, Non Tender, No Hepato-splenomegaly Extremities: No clubbing, No edema Skin: Ulcer/ Wound - R medial lower leg Wound Measurements and Assessment WC - Nurse 1 - General Ulcer Measurement Start: 04/11/19 10:28 Freq: Status: Active Protocol: Activity Type Activity Date Activity User E-Sign Co-Sign Detail Recorded Client Recorded Date Recorded By Document 04/11/19 10:29 [facility] [id number] 04/11/19 10:38 [facility] 04/11/19 10:29 Wound Center Nurse 1 [Ulcer Assessment] #3- R MED LE CLUSTER -Combined with other wound No -Current Size (cm) - Length 12.5 -Current Size (cm) - Width 12 -Current Size (cm) - Depth 0.1 -Total Square Cm 150.0 -Photo Taken No -Epithelialization None Present -Tunneling No -Undermining/Tunneling No -Circular Undermining No -Exudate Amt Large -Exudate Type Serosanguineous -Wound Margin Flat & Intact -Granulation Amt Medium (34-66%) -Granulation Quality Pale,Red -Slough/Fibrin Yes -Necrosis Amt Medium (34-66%) -Necrotic Tissue Type Adherent Slough -Texture (Marjan-wound Skin Appearance) Assessed, Scarring -Moisture (Marjan-wound Skin Appearance Assessed, ) Maceration, Weeping,Dry/ Scaly -Color (Marjan-wound Skin Appearance) Assessed, Erythema,Palor -Temperature (Marjan-wound Skin No Abnormality Appearance) (Pt Warm) -Tenderness on Palpation (Marjan-wound Yes Skin Appearance) -Ulcer Cleansing SOAPY WATER -Foul Odor after Cleansing No -Anesthetic Used 4% Lidocaine Solution #1- L MEDIAL THIGH -Combined with other wound No -Current Size (cm) - Length 11 -Current Size (cm) - Width 2.2 -Current Size (cm) - Depth 0.1 -Total Square Cm 24.2 -Photo Taken No -Epithelialization Small 1-33% -Tunneling No -Undermining/Tunneling No -Circular Undermining No -Exudate Amt Medium -Exudate Type Serosanguineous -Wound Margin Flat & Intact -Granulation Amt Large (67-100%) -Granulation Quality Pale,Red -Slough/Fibrin Yes -Necrosis Amt Small (1-33%) -Necrotic Tissue Type Adherent Slough -Texture (Marjan-wound Skin Appearance) Assessed, Scarring -Moisture (Marjan-wound Skin Appearance Assessed, ) Maceration, Weeping,Dry/ Scaly -Color (Marjan-wound Skin Appearance) Assessed, Erythema,Palor -Temperature (Marjan-wound Skin No Abnormality Appearance) (Pt Warm) -Tenderness on Palpation (Marjan-wound Yes Skin Appearance) -Ulcer Cleansing SOAPY WATER -Foul Odor after Cleansing No -Anesthetic Used 4% Lidocaine Solution [Edema Assessment] -Lower Limb Edema Present Yes -Right Calf (cm) 71.2 -Right Ankle (cm) 38 -Left Calf (cm) 69 -Left Ankle (cm) 37.8 WC - Nurse 2 - General Ulcer CM Notes Start: 04/11/19 10:28 Freq: Status: Active Protocol: Activity Type Activity Date Activity User E-Sign Co-Sign Detail Recorded Client Recorded Date Recorded By Document 04/11/19 10:50 MW [id number] 04/11/19 10:55 MW 04/11/19 10:50 Wound Center Nurse 2 [Procedure/Treatment] #3- R MED LE CLUSTER -Time 10:50 -Correct Patient Yes -Correct Side, Site, Position Yes -Correct Procedure Yes -Procedure Performed Yes -Type of Procedure Debridement -Clinical Debridement Subcutaneous -Post Debridement Size (cm) - Length 10.5 -Post Debridement Size (cm) - Width 12.0 -Post Debridement Size (cm) - Depth 0.1 -Total Square Cm 126.00 -Wound/Ulcer Outcome Not Healed -Ulcer Cleansing Rinsed/ Irrigated with Saline -Foul Odor after Cleansing No -Bioengineered Tissue No -Bleeding Controlled with Pressure -Offloading No -Treatment Response Procedure Tolerated Well #1- L MEDIAL THIGH -Time 10:50 -Correct Patient Yes -Correct Side, Site, Position Yes -Correct Procedure Yes -Procedure Performed No -Post Debridement Size (cm) - Length 0 -Post Debridement Size (cm) - Width 0 -Post Debridement Size (cm) - Depth 0 -Total Square Cm 0 -Wound/Ulcer Outcome Healed- Epithelialized [See Physician Procedure note for Specifics] Pain Scale: 0-10 Numeric [Pain] -Is Patient Pain Free? Yes Musculoskeletal: No Tenderness to Palpation of Joints or Extremities Lymphatic: No Cervical, Supraclavicular, or Inguinal Adenopathy Neurological: Cranial nerves II-XII grossly intact, Neuro grossly intact Psych/Mental Status: Normal Affect, Appropriate Debridement Note Post-Debridement Measurements/Treatment WC - Nurse 2 - General Ulcer CM Notes Start: 04/11/19 10:28 Freq: Status: Active Protocol: Activity Type Activity Date Activity User E-Sign Co-Sign Detail Recorded Client Recorded Date Recorded By Document 04/11/19 10:50 MW [id number] 04/11/19 10:55 MW 04/11/19 10:50 Wound Center Nurse 2 #3- R PASCALE CARRILLO CLUSTER -Time 10:50 -Correct Patient Yes -Correct Side, Site, Position Yes -Correct Procedure Yes -Procedure Performed Yes -Type of Procedure Debridement -Clinical Debridement Subcutaneous -Post Debridement Size (cm) - Length 10.5 -Post Debridement Size (cm) - Width 12.0 -Post Debridement Size (cm) - Depth 0.1 -Total Square Cm 126.00 -Wound/Ulcer Outcome Not Healed -Ulcer Cleansing Rinsed/ Irrigated with Saline -Foul Odor after Cleansing No -Bioengineered Tissue No -Bleeding Controlled with Pressure -Offloading No -Treatment Response Procedure Tolerated Well #1- L MEDIAL THIGH -Time 10:50 -Correct Patient Yes -Correct Side, Site, Position Yes -Correct Procedure Yes -Procedure Performed No -Post Debridement Size (cm) - Length 0 -Post Debridement Size (cm) - Width 0 -Post Debridement Size (cm) - Depth 0 -Total Square Cm 0 -Wound/Ulcer Outcome Healed- Epithelialized Pain Scale: 0-10 Numeric Is Patient Pain Free? Yes Wound debrided: Right medial lower leg Laterality: Right Type of Debridement: Excisional debridement Anesthesia Used: 5% Lidocaine Gel Depth: Down to and including healthy tissue, in the subcutaneous layer Percentage of wound debrided: 100 Instrument Used: 7mm curette Tissue Removed: Fibrin and some slough Severity: Limited To Skin Breakdown Amount of bleeding with debridement: None Bleeding Controlled with: Pressure Patient tolerated procedure well Assessment/Plan Active Problems Morbid obesity with BMI of 60.0-69.9, adult (Acute) Lymphedema in adult patient (Acute) Open wound of lower limb without complication (Acute) Superficial ulcer of skin (Acute) Assessment: Open wound left upper thigh cluster solved. Morbid obesity. Lymphedema. Superficial skin openings on right wood resolved Plan: Wash areas with antibacterial soap. Apply Aquacel extra dressings to the area cover with gauze. Wrap with compression wraps . Follow up in 1 week. Increase use of compression pump to 2 times a day wear over compression stockings
[2019-04-18 10:01] VITALS: BP 162/97; PULSE 83; RESP 18; TEMP 37.2; BMI 50.6
--- NOTE | 2019-04-18 11:19 | PN.PCM_ITS ---
(1) Lymphedema in adult patient Status: Acute Current Visit: Yes Code(s): I89.0 - Lymphedema, not elsewhere classified (2) Morbid obesity with BMI of 60.0-69.9, adult Status: Acute Current Visit: Yes Code(s): E66.01 - Morbid (severe) obesity due to excess calories; Z68.44 - Body mass index (BMI) 60.0-69.9, adult (3) Open wound of lower limb without complication Status: Acute Current Visit: Yes Code(s): S81.809A - Unspecified open wound, unspecified lower leg, initial encounter (4) Superficial ulcer of skin Status: Acute Current Visit: Yes Code(s): L98.491 - Non-pressure chronic ulcer of skin of other sites limited to breakdown of skin Type of Wound Date of Service: 04/18/19 Chief Complaint: Follow-up on open wounds of her left upper thigh History of Wound: 63-year-old white female that has severe lymphedema on arms and lower extremities. She goes to the lymphedema clinic at [facility] weekly. She also uses her pumps 1 hour a day. She sleeps in a recliner she also suffers from morbid obesity. She noted a blistering area on her left upper thigh with seepage. Progress of Wound: The areas on the left upper thigh healed and the right wood and right lateral lower leg. The R medial leg is still open superficially. The areas are now closing they have been better about using there wraps. She is going to buy a single bed so she can sleep in a bed not in a chair which is really good. - Physical Exam Vital Signs Temp Pulse Resp BP 98.9 F 83 18 162/97 H 04/18/19 10:01 04/18/19 10:01 04/18/19 10:01 04/18/19 10:01 General: Oriented x3, Cooperative, Well developed HEENT: Atraumatic, PERRLA Oral: Moist Mucosa Neck: Supple, No JVD Lungs: Clear to auscultation, Normal air movement Cardiovascular: Regular rate, Regular Rhythm Abdomen: Bowel Sounds Present, Soft, Non Tender, No Hepato-splenomegaly Extremities: No clubbing, No edema Skin: Ulcer/ Wound Wound Measurements and Assessment WC - Nurse 1 - General Ulcer Measurement Start: 04/11/19 10:28 Freq: Status: Active Protocol: Activity Type Activity Date Activity User E-Sign Co-Sign Detail Recorded Client Recorded Date Recorded By Document 04/18/19 10:01 RB [id number] 04/18/19 10:03 RB 04/18/19 10:01 Wound Center Nurse 1 [Ulcer Assessment] #3- R MED LE CLUSTER -Combined with other wound No -Current Size (cm) - Length 9.5 -Current Size (cm) - Width 8 -Current Size (cm) - Depth 0.1 -Total Square Cm 76.0 -Tunneling No -Undermining/Tunneling No -Circular Undermining No -Exudate Amt Medium -Exudate Type Serosanguineous -Wound Margin Flat & Intact -Granulation Amt Medium (34-66%) -Granulation Quality [place] -Slough/Fibrin Yes -Necrosis Amt Medium (34-66%) -Necrotic Tissue Type Adherent Slough -Structure Exposed N/A -Texture (Marjan-wound Skin Appearance) Assessed, Excoriation, Friable -Moisture (Marjan-wound Skin Appearance Assessed ) -Color (Marjan-wound Skin Appearance) Assessed -Temperature (Marjan-wound Skin No Abnormality Appearance) (Pt Warm) -Tenderness on Palpation (Marjan-wound No Skin Appearance) -Ulcer Cleansing Wound Cleanser -Foul Odor after Cleansing No -Anesthetic Used 4% Lidocaine Solution [Edema Assessment] -Lower Limb Edema Present Yes -Right Calf (cm) 67 -Right Ankle (cm) 36 -Left Calf (cm) 64 -Left Ankle (cm) 36 WC - Nurse 2 - General Ulcer CM Notes Start: 04/11/19 10:28 Freq: Status: Active Protocol: Activity Type Activity Date Activity User E-Sign Co-Sign Detail Recorded Client Recorded Date Recorded By Document 04/18/19 10:45 MW [id number] 04/18/19 10:47 MW 04/18/19 10:45 Wound Center Nurse 2 [Procedure/Treatment] #3- R MED LE CLUSTER -Time 10:46 -Correct Patient Yes -Correct Side, Site, Position Yes -Correct Procedure Yes -Procedure Performed Yes -Type of Procedure Debridement -Clinical Debridement Subcutaneous -Post Debridement Size (cm) - Length 9.5 -Post Debridement Size (cm) - Width 7.0 -Post Debridement Size (cm) - Depth 0.2 -Total Square Cm 66.50 -Wound/Ulcer Outcome Not Healed -Ulcer Cleansing Rinsed/ Irrigated with Saline -Foul Odor after Cleansing No -Bioengineered Tissue No -Bleeding Controlled with Pressure -Offloading No -Treatment Response Procedure Tolerated Well [See Physician Procedure note for Specifics] Pain Scale: 0-10 Numeric [Pain] -Is Patient Pain Free? Yes Musculoskeletal: No Tenderness to Palpation of Joints or Extremities Lymphatic: No Cervical, Supraclavicular, or Inguinal Adenopathy Neurological: Cranial nerves II-XII grossly intact, Neuro grossly intact Psych/Mental Status: Normal Affect, Appropriate, Alert and oriented to time, place, person, mood and affect Debridement Note Post-Debridement Measurements/Treatment WC - Nurse 2 - General Ulcer CM Notes Start: 04/11/19 10:28 Freq: Status: Active Protocol: Activity Type Activity Date Activity User E-Sign Co-Sign Detail Recorded Client Recorded Date Recorded By Document 04/11/19 10:50 MW [id number] 04/11/19 10:55 MW Document 04/18/19 10:45 MW [id number] 04/18/19 10:47 MW 04/11/19 04/18/19 10:50 10:45 Wound Center Nurse 2 #3- R MED LE CLUSTER -Time 10:50 10:46 -Correct Patient Yes Yes -Correct Side, Site, Position Yes Yes -Correct Procedure Yes Yes -Procedure Performed Yes Yes -Type of Procedure Debridement Debridement -Clinical Debridement Subcutaneous Subcutaneous -Post Debridement Size (cm) - Length 10.5 9.5 -Post Debridement Size (cm) - Width 12.0 7.0 -Post Debridement Size (cm) - Depth 0.1 0.2 -Total Square Cm 126.00 66.50 -Wound/Ulcer Outcome Not Healed Not Healed -Ulcer Cleansing Rinsed/ Rinsed/ Irrigated with Irrigated with Saline Saline -Foul Odor after Cleansing No No -Bioengineered Tissue No No -Bleeding Controlled with Pressure Pressure -Offloading No No -Treatment Response Procedure Procedure Tolerated Well Tolerated Well #1- L MEDIAL THIGH -Time 10:50 -Correct Patient Yes -Correct Side, Site, Position Yes -Correct Procedure Yes -Procedure Performed No -Post Debridement Size (cm) - Length 0 -Post Debridement Size (cm) - Width 0 -Post Debridement Size (cm) - Depth 0 -Total Square Cm 0 -Wound/Ulcer Outcome Healed- Epithelialized Pain Scale: 0-10 Numeric Is Patient Pain Free? Yes Yes Wound debrided: Right medial lower leg Type of Debridement: Excisional debridement Anesthesia Used: 5% Lidocaine Gel Depth: Down to and including healthy tissue, in the subcutaneous layer Percentage of wound debrided: 100 Instrument Used: 7mm curette Tissue Removed: Slough Severity: Limited To Skin Breakdown Amount of bleeding with debridement: Mild Bleeding Controlled with: Compression and gauze Patient tolerated procedure well Assessment/Plan Active Problems Morbid obesity with BMI of 60.0-69.9, adult (Acute) Lymphedema in adult patient (Acute) Open wound of lower limb without complication (Acute) Superficial ulcer of skin (Acute) Assessment: Open wound left upper thigh cluster solved. Morbid obesity. Lymphedema. Superficial skin openings on right wood resolved Plan: Wash areas with antibacterial soap. Apply Aquacel extra dressings to the area cover with gauze. Wrap with compression wraps . Follow up in 1 week. Increase use of compression pump to 2 times a day wear over compression stockings
[2019-04-25 11:06] VITALS: BMI 50.6
--- NOTE | 2019-04-25 11:09 | WC ---
Addendum entered by Tamika Diggs 04/25/19 11:48: charted on wrong pt. Original Note: pt states I am feeling under the weather. I hve the chills and aches. temp 100.2
== END 2019-05-08 23:59 ==
LOC: WC 10:00
PROVIDERS: Family Provider Physician Assistant Medical; PCP Physician Assistant Medical; Visit Provider Nurse Practitioner
DX: S70.322A Blister (nonthermal), left thigh, initial encounter (principal); X58.XXXA Exposure to other specified factors, initial encounter; I89.0 Lymphedema, not elsewhere classified; S81.801A Unspecified open wound, right lower leg, initial encounter; E66.01 Morbid (severe) obesity due to excess calories; Z71.3 Dietary counseling and surveillance; Z68.44 Body mass index [BMI] 60.0-69.9, adult
CPT/HCPCS: 11042; 11045

== ENCOUNTER 2019-06-06 10:00 | Outpatient (RCR) | payer MEDICAID, SELFPAY ==
[2019-05-09 00:38] VITALS: BP 162/97; PULSE 83; RESP 18; TEMP 37.2
[2019-05-23 10:43] VITALS: BMI 50.6
--- NOTE | 2019-05-23 12:37 | PN.PCM_ITS ---
(1) Lymphedema in adult patient Status: Acute Current Visit: Yes Code(s): I89.0 - Lymphedema, not elsewhere classified (2) Morbid obesity with BMI of 60.0-69.9, adult Status: Acute Current Visit: Yes Code(s): E66.01 - Morbid (severe) obesity due to excess calories; Z68.44 - Body mass index (BMI) 60.0-69.9, adult (3) Open wound of lower limb without complication Status: Acute Current Visit: Yes Code(s): S81.809A - Unspecified open wound, unspecified lower leg, initial encounter (4) Superficial ulcer of skin Status: Acute Current Visit: Yes Code(s): L98.491 - Non-pressure chronic ulcer of skin of other sites limited to breakdown of skin Type of Wound Date of Service: 05/23/19 Chief Complaint: Follow-up on open wounds of her left upper thigh History of Wound: 63-year-old white female that has severe lymphedema on arms and lower extremities. She goes to the lymphedema clinic at [facility] weekly. She also uses her pumps 1 hour a day. She sleeps in a recliner she also suffers from morbid obesity. She noted a blistering area on her left upper thigh with seepage. Progress of Wound: Open areas on the right lower leg medial cluster and right lateral lower leg cluster. Legs are very edematous patient has not been wearing compression skin has not been bathes correctly. States she is using her compressions pump but does not show by evidence of the wounds that were seeing. - Physical Exam Vital Signs Temp Pulse Resp BP 98.9 F 83 18 162/97 H 05/09/19 00:38 05/09/19 00:38 05/09/19 00:38 05/09/19 00:38 General: Oriented x3, Cooperative, Well developed HEENT: Atraumatic, PERRLA Oral: Moist Mucosa Neck: Supple, No JVD Lungs: Clear to auscultation, Normal air movement Cardiovascular: Regular rate, Regular Rhythm Abdomen: Bowel Sounds Present, Soft, Non Tender, No Hepato-splenomegaly Extremities: No clubbing, No edema Skin: Ulcer/ Wound - Right lower inner and right lower outer leg ulcers Wound Measurements and Assessment WC - Nurse 1 - General Ulcer Measurement Start: 05/23/19 10:43 Freq: Status: Active Protocol: Activity Type Activity Date Activity User E-Sign Co-Sign Detail Recorded Client Recorded Date Recorded By Document 05/23/19 10:43 MW [id number] 05/23/19 10:58 MW 05/23/19 10:43 Wound Center Nurse 1 [Ulcer Assessment] #5 right lateral LE cluster -Combined with other wound No -Current Size (cm) - Length 7.0 -Current Size (cm) - Width 3.0 -Current Size (cm) - Depth 0.1 -Total Square Cm 21.00 -Date of Last Picture (Recall this 05/23/19 field) -Photo Taken Yes -Epithelialization None Present -Tunneling No -Undermining/Tunneling No -Circular Undermining No -Exudate Amt Large -Exudate Type Serosanguineous -Wound Margin Flat & Intact -Granulation Amt Large (67-100%) -Granulation Quality [place] -Slough/Fibrin Yes -Necrosis Amt Small (1-33%) -Necrotic Tissue Type Adherent Slough -Structure Exposed N/A -Texture (Marjan-wound Skin Appearance) Assessed, Localized Edema -Moisture (Marjan-wound Skin Appearance Assessed, ) Weeping -Color (Marjan-wound Skin Appearance) Assessed,Rubor -Temperature (Marjan-wound Skin No Abnormality Appearance) (Pt Warm) -Tenderness on Palpation (Marjan-wound No Skin Appearance) -Ulcer Cleansing soap and water -Foul Odor after Cleansing No -Anesthetic Used 4% Lidocaine Solution #4 right medial LE cluster -Combined with other wound No -Current Size (cm) - Length 15.0 -Current Size (cm) - Width 7.0 -Current Size (cm) - Depth 0.1 -Total Square Cm 105.00 -Photo Taken Yes -Epithelialization None Present -Tunneling No -Undermining/Tunneling No -Circular Undermining No -Exudate Amt Large -Exudate Type Serosanguineous -Wound Margin Flat & Intact -Granulation Amt Large (67-100%) -Granulation Quality [place] -Slough/Fibrin Yes -Necrosis Amt Small (1-33%) -Necrotic Tissue Type Eschar -Structure Exposed N/A -Texture (Marjan-wound Skin Appearance) Assessed, Localized Edema -Moisture (Marjan-wound Skin Appearance Assessed,Dry/ ) Scaly -Color (Marjan-wound Skin Appearance) Assessed,Rubor -Temperature (Marjan-wound Skin No Abnormality Appearance) (Pt Warm) -Tenderness on Palpation (Marjan-wound No Skin Appearance) -Ulcer Cleansing soap and water -Foul Odor after Cleansing No -Anesthetic Used 4% Lidocaine Solution [Edema Assessment] -Lower Limb Edema Present Yes -Right Calf (cm) 73.5 -Right Ankle (cm) 45.5 -Left Calf (cm) 68.5 -Left Ankle (cm) 41.0 WC - Nurse 2 - General Ulcer CM Notes Start: 05/23/19 10:43 Freq: Status: Active Protocol: Activity Type Activity Date Activity User E-Sign Co-Sign Detail Recorded Client Recorded Date Recorded By Document 05/23/19 11:01 MW [id number] 05/23/19 11:08 MW 05/23/19 11:01 Wound Center Nurse 2 [Procedure/Treatment] #5 right lateral LE cluster -Time 11:03 -Correct Patient Yes -Correct Side, Site, Position Yes -Correct Procedure Yes -Procedure Performed Yes -Type of Procedure Debridement -Clinical Debridement Selective -Post Debridement Size (cm) - Length 6.5 -Post Debridement Size (cm) - Width 5.5 -Post Debridement Size (cm) - Depth 0.1 -Total Square Cm 35.75 -Wound/Ulcer Outcome Not Healed -Ulcer Cleansing Rinsed/ Irrigated with Saline -Foul Odor after Cleansing No -Bioengineered Tissue No -Bleeding Controlled with Pressure -Offloading No -Treatment Response Procedure Tolerated Well #4 right medial LE cluster -Time 11:03 -Correct Patient Yes -Correct Side, Site, Position Yes -Correct Procedure Yes -Procedure Performed Yes -Type of Procedure Debridement -Clinical Debridement Subcutaneous -Post Debridement Size (cm) - Length 3.2 -Post Debridement Size (cm) - Width 6.5 -Post Debridement Size (cm) - Depth 0.2 -Total Square Cm 20.80 -Wound/Ulcer Outcome Not Healed -Ulcer Cleansing Rinsed/ Irrigated with Saline -Foul Odor after Cleansing No -Bioengineered Tissue No -Bleeding Controlled with Pressure -Offloading No -Treatment Response Procedure Tolerated Well [See Physician Procedure note for Specifics] Pain Scale: 0-10 Numeric [Pain] -Is Patient Pain Free? Yes Musculoskeletal: No Tenderness to Palpation of Joints or Extremities Lymphatic: No Cervical, Supraclavicular, or Inguinal Adenopathy Neurological: Cranial nerves II-XII grossly intact, Neuro grossly intact Psych/Mental Status: Normal Affect, Appropriate Debridement Note Post-Debridement Measurements/Treatment WC - Nurse 2 - General Ulcer CM Notes Start: 05/23/19 10:43 Freq: Status: Active Protocol: Activity Type Activity Date Activity User E-Sign Co-Sign Detail Recorded Client Recorded Date Recorded By Document 05/23/19 11:01 MW [id number] 05/23/19 11:08 MW 05/23/19 11:01 Wound Center Nurse 2 #5 right lateral LE cluster -Time 11:03 -Correct Patient Yes -Correct Side, Site, Position Yes -Correct Procedure Yes -Procedure Performed Yes -Type of Procedure Debridement -Clinical Debridement Selective -Post Debridement Size (cm) - Length 6.5 -Post Debridement Size (cm) - Width 5.5 -Post Debridement Size (cm) - Depth 0.1 -Total Square Cm 35.75 -Wound/Ulcer Outcome Not Healed -Ulcer Cleansing Rinsed/ Irrigated with Saline -Foul Odor after Cleansing No -Bioengineered Tissue No -Bleeding Controlled with Pressure -Offloading No -Treatment Response Procedure Tolerated Well #4 right medial LE cluster -Time 11:03 -Correct Patient Yes -Correct Side, Site, Position Yes -Correct Procedure Yes -Procedure Performed Yes -Type of Procedure Debridement -Clinical Debridement Subcutaneous -Post Debridement Size (cm) - Length 3.2 -Post Debridement Size (cm) - Width 6.5 -Post Debridement Size (cm) - Depth 0.2 -Total Square Cm 20.80 -Wound/Ulcer Outcome Not Healed -Ulcer Cleansing Rinsed/ Irrigated with Saline -Foul Odor after Cleansing No -Bioengineered Tissue No -Bleeding Controlled with Pressure -Offloading No -Treatment Response Procedure Tolerated Well Pain Scale: 0-10 Numeric Is Patient Pain Free? Yes Wound debrided: Right medial lower extremity ulcers Type of Debridement: Excisional debridement Anesthesia Used: 5% Lidocaine Gel Depth: Down to and including healthy tissue, in the subcutaneous layer Percentage of wound debrided: 100 Instrument Used: 7mm curette Tissue Removed: Slough Amount of bleeding with debridement: Mild Bleeding Controlled with: Compression and gauze Patient tolerated procedure well - Additional Wound Wound debrided: Right lateral lower extremity ulcers Type of Debridement: Selective debridement Anesthesia Used: 5% Lidocaine Gel Depth: Down to and including healthy tissue Percentage of wound debrided: 100 Instrument Used: - - Gauze Tissue Removed: Devitalized tissue Severity: Limited To Skin Breakdown Amount of bleeding with debridement: None Bleeding Controlled with: Pressure Patient tolerated procedure: Patient tolerated procedure well Assessment/Plan Active Problems Morbid obesity with BMI of 60.0-69.9, adult (Acute) Lymphedema in adult patient (Acute) Open wound of lower limb without complication (Acute) Superficial ulcer of skin (Acute) Assessment: Open wound left upper thigh cluster solved. Morbid obesity. Lymphedema. Superficial skin openings on right wood resolved Plan: Wash areas with antibacterial soap. Apply Aquacel extra dressings to the area cover with gauze. Wrap with compression wraps . Follow up in 1 week. Increase use of compression pump to 2 times a day wear over compression stockings
[2019-05-30 09:05] VITALS: BP 186/88; PULSE 99; RESP 20; TEMP 37.6; BMI 50.6
--- NOTE | 2019-05-30 11:44 | PCM.WC.PN ---
(1) Lymphedema in adult patient Status: Acute Current Visit: Yes Code(s): I89.0 - Lymphedema, not elsewhere classified (2) Morbid obesity with BMI of 60.0-69.9, adult Status: Acute Current Visit: Yes Code(s): E66.01 - Morbid (severe) obesity due to excess calories; Z68.44 - Body mass index (BMI) 60.0-69.9, adult (3) Open wound of lower limb without complication Status: Acute Current Visit: Yes Code(s): S81.809A - Unspecified open wound, unspecified lower leg, initial encounter (4) Superficial ulcer of skin Status: Acute Current Visit: Yes Code(s): L98.491 - Non-pressure chronic ulcer of skin of other sites limited to breakdown of skin Type of Wound Date of Service: 05/30/19 Chief Complaint: Follow-up on open wounds of her left upper thigh History of Wound: 63-year-old white female that has severe lymphedema on arms and lower extremities. She goes to the lymphedema clinic at [facility] weekly. She also uses her pumps 1 hour a day. She sleeps in a recliner she also suffers from morbid obesity. She noted a blistering area on her left upper thigh with seepage. Progress of Wound: Open areas on the right lower leg medial cluster . THe right lateral lower leg clusteris resolved . Legs are very edematous patient has not been wearing compression skin has not been bathes correctly. States she is using her compressions pump but does not show by evidence of the wounds that were seeing.We discussed her bed now is on a porch that is cold in the winter time. suggested getting a heating blanket to throw over her to do the pumps with. - Physical Exam Vital Signs Temp Pulse Resp BP 99.7 F H 99 20 H 186/88 H 05/30/19 09:05 05/30/19 09:05 05/30/19 09:05 05/30/19 09:05 General: Oriented x3, Cooperative, Well developed HEENT: Atraumatic, PERRLA Oral: Moist Mucosa Neck: Supple, No JVD Lungs: Clear to auscultation, Normal air movement Cardiovascular: Regular rate, Regular Rhythm Abdomen: Bowel Sounds Present, Soft, Non Tender, No Hepato-splenomegaly Extremities: No clubbing, No edema Skin: Ulcer/ Wound - Right lower medial leg still has some depth Wound Measurements and Assessment WC - Nurse 1 - General Ulcer Measurement Start: 05/23/19 10:43 Freq: Status: Active Protocol: Activity Type Activity Date Activity User E-Sign Co-Sign Detail Recorded Client Recorded Date Recorded By Document 05/30/19 09:05 [facility] [id number] 05/30/19 09:28 [facility] 05/30/19 09:05 Wound Center Nurse 1 [Ulcer Assessment] #5 right lateral LE cluster -Combined with other wound No -Current Size (cm) - Length 6.5 -Current Size (cm) - Width 2.0 -Current Size (cm) - Depth 0.1 -Total Square Cm 13.00 -Photo Taken No -Epithelialization None Present -Tunneling No -Undermining/Tunneling No -Circular Undermining No -Exudate Amt Large -Exudate Type Serosanguineous -Wound Margin Flat & Intact -Granulation Amt Large (67-100%) -Granulation Quality Red -Slough/Fibrin Yes -Necrosis Amt Small (1-33%) -Necrotic Tissue Type Adherent Slough -Texture (Marjan-wound Skin Appearance) Assessed, Scarring -Moisture (Marjan-wound Skin Appearance Assessed, ) Weeping -Color (Marjan-wound Skin Appearance) Assessed, Erythema -Temperature (Marjan-wound Skin No Abnormality Appearance) (Pt Warm) -Tenderness on Palpation (Marjan-wound No Skin Appearance) -Ulcer Cleansing Rinsed/ Irrigated with Saline -Foul Odor after Cleansing No -Anesthetic Used 4% Lidocaine Solution #4 right medial LE cluster -Combined with other wound No -Current Size (cm) - Length 3.5 -Current Size (cm) - Width 4.0 -Current Size (cm) - Depth 0.1 -Total Square Cm 14.00 -Photo Taken No -Epithelialization Small 1-33% -Tunneling No -Undermining/Tunneling No -Circular Undermining No -Exudate Amt Large -Exudate Type Serosanguineous -Wound Margin Flat & Intact -Granulation Amt Large (67-100%) -Granulation Quality Red -Slough/Fibrin Yes -Necrosis Amt Small (1-33%) -Necrotic Tissue Type Adherent Slough -Texture (Marjan-wound Skin Appearance) Assessed -Moisture (Marjan-wound Skin Appearance No Abnormality, ) Weeping -Color (Marjan-wound Skin Appearance) Assessed, Erythema -Temperature (Marjan-wound Skin No Abnormality Appearance) (Pt Warm) -Tenderness on Palpation (Marjan-wound No Skin Appearance) -Ulcer Cleansing Rinsed/ Irrigated with Saline -Foul Odor after Cleansing No -Anesthetic Used 4% Lidocaine Solution [Edema Assessment] -Lower Limb Edema Present Yes -Right Calf (cm) 71.6 -Right Ankle (cm) 48 -Left Calf (cm) 67.5 -Left Ankle (cm) 39.5 WC - Nurse 2 - General Ulcer CM Notes Start: 05/23/19 10:43 Freq: Status: Active Protocol: Activity Type Activity Date Activity User E-Sign Co-Sign Detail Recorded Client Recorded Date Recorded By Document 05/30/19 10:02 MW [id number] 05/30/19 10:04 MW 05/30/19 10:02 Wound Center Nurse 2 [Procedure/Treatment] #5 right lateral LE cluster -Time 10:03 -Correct Patient Yes -Correct Side, Site, Position Yes -Correct Procedure Yes -Procedure Performed No -Post Debridement Size (cm) - Length 0 -Post Debridement Size (cm) - Width 0 -Post Debridement Size (cm) - Depth 0 -Total Square Cm 0 -Wound/Ulcer Outcome Healed- Epithelialized #4 right medial LE cluster -Time 10:03 -Correct Patient Yes -Correct Side, Site, Position Yes -Correct Procedure Yes -Procedure Performed Yes -Type of Procedure Debridement -Clinical Debridement Subcutaneous -Post Debridement Size (cm) - Length 3.5 -Post Debridement Size (cm) - Width 4.5 -Post Debridement Size (cm) - Depth 0.2 -Total Square Cm 15.75 -Wound/Ulcer Outcome Not Healed -Ulcer Cleansing Rinsed/ Irrigated with Saline -Foul Odor after Cleansing No -Bioengineered Tissue No -Bleeding Controlled with Pressure -Offloading No -Treatment Response Procedure Tolerated Well [See Physician Procedure note for Specifics] Pain Scale: 0-10 Numeric [Pain] -Is Patient Pain Free? Yes Musculoskeletal: No Tenderness to Palpation of Joints or Extremities Lymphatic: No Cervical, Supraclavicular, or Inguinal Adenopathy Neurological: Cranial nerves II-XII grossly intact, Neuro grossly intact Psych/Mental Status: Normal Affect, Appropriate Debridement Note Post-Debridement Measurements/Treatment WC - Nurse 2 - General Ulcer CM Notes Start: 05/23/19 10:43 Freq: Status: Active Protocol: Activity Type Activity Date Activity User E-Sign Co-Sign Detail Recorded Client Recorded Date Recorded By Document 05/23/19 11:01 MW [id number] 05/23/19 11:08 MW Document 05/30/19 10:02 MW [id number] 05/30/19 10:04 MW 05/23/19 05/30/19 11:01 10:02 Wound Center Nurse 2 #5 right lateral LE cluster -Time 11:03 10:03 -Correct Patient Yes Yes -Correct Side, Site, Position Yes Yes -Correct Procedure Yes Yes -Procedure Performed Yes No -Type of Procedure Debridement -Clinical Debridement Selective -Post Debridement Size (cm) - Length 6.5 0 -Post Debridement Size (cm) - Width 5.5 0 -Post Debridement Size (cm) - Depth 0.1 0 -Total Square Cm 35.75 0 -Wound/Ulcer Outcome Not Healed Healed- Epithelialized -Ulcer Cleansing Rinsed/ Irrigated with Saline -Foul Odor after Cleansing No -Bioengineered Tissue No -Bleeding Controlled with Pressure -Offloading No -Treatment Response Procedure Tolerated Well #4 right medial LE cluster -Time 11:03 10:03 -Correct Patient Yes Yes -Correct Side, Site, Position Yes Yes -Correct Procedure Yes Yes -Procedure Performed Yes Yes -Type of Procedure Debridement Debridement -Clinical Debridement Subcutaneous Subcutaneous -Post Debridement Size (cm) - Length 3.2 3.5 -Post Debridement Size (cm) - Width 6.5 4.5 -Post Debridement Size (cm) - Depth 0.2 0.2 -Total Square Cm 20.80 15.75 -Wound/Ulcer Outcome Not Healed Not Healed -Ulcer Cleansing Rinsed/ Rinsed/ Irrigated with Irrigated with Saline Saline -Foul Odor after Cleansing No No -Bioengineered Tissue No No -Bleeding Controlled with Pressure Pressure -Offloading No No -Treatment Response Procedure Procedure Tolerated Well Tolerated Well Pain Scale: 0-10 Numeric Is Patient Pain Free? Yes Yes Wound debrided: Right medial lower leg cluster Type of Debridement: Excisional debridement Anesthesia Used: 5% Lidocaine Gel Depth: Down to and including healthy tissue, in the subcutaneous layer Percentage of wound debrided: 100 Instrument Used: 7mm curette Tissue Removed: Slough and fibrin Severity: Limited To Skin Breakdown Amount of bleeding with debridement: Mild Bleeding Controlled with: Compression and gauze Patient tolerated procedure well Assessment/Plan Active Problems Morbid obesity with BMI of 60.0-69.9, adult (Acute) Lymphedema in adult patient (Acute) Open wound of lower limb without complication (Acute) Superficial ulcer of skin (Acute) Assessment: Open wound left upper thigh cluster solved. Morbid obesity. Lymphedema. Superficial skin openings on right wood resolved Plan: Wash areas with antibacterial soap. Apply Aquacel extra dressings to the area cover with gauze. Wrap with compression wraps . Follow up in 1 week. Increase use of compression pump to 2 times a day wear over compression stockings
[2019-06-06 10:06] VITALS: BP 188/77; PULSE 108; RESP 22; TEMP 36.2; BMI 50.6
--- NOTE | 2019-06-06 10:45 | PN.PCM_ITS ---
(1) Lymphedema in adult patient Status: Acute Current Visit: Yes Code(s): I89.0 - Lymphedema, not elsewhere classified (2) Morbid obesity with BMI of 60.0-69.9, adult Status: Acute Current Visit: Yes Code(s): E66.01 - Morbid (severe) obesity due to excess calories; Z68.44 - Body mass index (BMI) 60.0-69.9, adult (3) Open wound of lower limb without complication Status: Acute Current Visit: Yes Code(s): S81.809A - Unspecified open wound, unspecified lower leg, initial encounter (4) Superficial ulcer of skin Status: Acute Current Visit: Yes Code(s): L98.491 - Non-pressure chronic ulcer of skin of other sites limited to breakdown of skin (5) Morbid obesity Status: Acute Current Visit: Yes Code(s): E66.01 - Morbid (severe) obesity due to excess calories (6) Morbid obesity with BMI of 50.0-59.9, adult Status: Acute Current Visit: Yes Code(s): E66.01 - Morbid (severe) obesity due to excess calories; Z68.43 - Body mass index (BMI) 50.0-59.9, adult Type of Wound Date of Service: 06/06/19 Chief Complaint: Follow-up on open wounds of her left upper thigh History of Wound: 63-year-old white female that has severe lymphedema on arms and lower extremities. She goes to the lymphedema clinic at [facility] weekly. She also uses her pumps 1 hour a day. She sleeps in a recliner she also suffers from morbid obesity. She noted a blistering area on her left upper thigh with seepage. Progress of Wound: Open areas on the right lower leg medial cluster . THe right lateral lower leg clusteris resolved . Legs are very edematous patient has not been wearing compression skin has not been bathes correctly. States she is using her compressions pump but does not show by evidence of the wounds that were seeing.We discussed her bed now is on a porch that is cold in the winter time . The ulcers this week are little bit deeper and bigger we will switch her from Aquacel extra to Aquacel silver she seems to be accumulating more slough in the ulcers. suggested getting a heating blanket to throw over her to do the pumps with. - Physical Exam Vital Signs Temp Pulse Resp BP 97.2 F L 108 H 22 H 188/77 H 06/06/19 10:06 06/06/19 10:06 06/06/19 10:06 06/06/19 10:06 General: Oriented x3, Cooperative, Well developed HEENT: Atraumatic, PERRLA Oral: Moist Mucosa Neck: Supple, No JVD Lungs: Clear to auscultation, Normal air movement Cardiovascular: Regular rate, Regular Rhythm Abdomen: Bowel Sounds Present, Soft, Non Tender, No Hepato-splenomegaly Extremities: No clubbing, No edema, - - Right medial lower leg ulcer Wound Measurements and Assessment - Nurse 1 - General Ulcer Measurement Start: 05/23/19 10:43 Freq: Status: Active Protocol: Activity Type Activity Date Activity User E-Sign Co-Sign Detail Recorded Client Recorded Date Recorded By Document 06/06/19 10:06 [facility] [id number] 06/06/19 10:10 [facility] 06/06/19 10:06 Wound Center Nurse 1 [Ulcer Assessment] #4 right medial LE cluster -Current Size (cm) - Length 3.3 -Current Size (cm) - Width 6.0 -Current Size (cm) - Depth 0.2 -Total Square Cm 19.80 -Photo Taken No -Epithelialization None Present -Tunneling No -Undermining/Tunneling No -Circular Undermining No -Exudate Amt Medium -Exudate Type Serosanguineous -Wound Margin Distinct, Outline Attached -Granulation Amt Medium (34-66%) -Granulation Quality Red -Slough/Fibrin Yes -Necrosis Amt None Present (0 %) -Necrotic Tissue Type Adherent Slough -Structure Exposed N/A -Texture (Marjan-wound Skin Appearance) Excoriation, Friable -Moisture (Marjan-wound Skin Appearance No Abnormality, ) Assessed -Color (Marjan-wound Skin Appearance) Erythema -Temperature (Marjan-wound Skin No Abnormality Appearance) (Pt Warm) -Tenderness on Palpation (Marjan-wound No Skin Appearance) -Ulcer Cleansing Wound Cleanser -Foul Odor after Cleansing No -Anesthetic Used 4% Lidocaine Solution [Edema Assessment] -Lower Limb Edema Present Yes -Right Calf (cm) 71.9 -Right Ankle (cm) 39.5 -Left Calf (cm) 65.5 -Left Ankle (cm) 33.0 - Nurse 2 - General Ulcer CM Notes Start: 05/23/19 10:43 Freq: Status: Active Protocol: Activity Type Activity Date Activity User E-Sign Co-Sign Detail Recorded Client Recorded Date Recorded By Document 06/06/19 10:16 MW [id number] 06/06/19 10:20 MW 06/06/19 10:16 Wound Center Nurse 2 [Procedure/Treatment] #4 right medial LE cluster -Time 10:19 -Correct Patient Yes -Correct Side, Site, Position Yes -Correct Procedure Yes -Procedure Performed Yes -Type of Procedure Debridement -Clinical Debridement Subcutaneous -Post Debridement Size (cm) - Length 3.0 -Post Debridement Size (cm) - Width 6.0 -Post Debridement Size (cm) - Depth 0.2 -Total Square Cm 18.00 -Wound/Ulcer Outcome Not Healed -Ulcer Cleansing Rinsed/ Irrigated with Saline -Foul Odor after Cleansing No -Bioengineered Tissue No -Bleeding Controlled with Pressure -Offloading No -Treatment Response Procedure Tolerated Well [See Physician Procedure note for Specifics] Pain Scale: 0-10 Numeric [Pain] -Is Patient Pain Free? Yes Musculoskeletal: No Tenderness to Palpation of Joints or Extremities Lymphatic: No Cervical, Supraclavicular, or Inguinal Adenopathy Neurological: Cranial nerves II-XII grossly intact, Neuro grossly intact Psych/Mental Status: Normal Affect, Appropriate Debridement Note Post-Debridement Measurements/Treatment - Nurse 2 - General Ulcer CM Notes Start: 05/23/19 10:43 Freq: Status: Active Protocol: Activity Type Activity Date Activity User E-Sign Co-Sign Detail Recorded Client Recorded Date Recorded By Document 05/23/19 11:01 MW [id number] 05/23/19 11:08 MW Document 05/30/19 10:02 MW [id number] 05/30/19 10:04 MW Document 06/06/19 10:16 MW [id number] 06/06/19 10:20 MW 05/23/19 05/30/19 06/06/19 11:01 10:02 10:16 Wound Center Nurse 2 #5 right lateral LE cluster -Time 11:03 10:03 -Correct Patient Yes Yes -Correct Side, Site, Position Yes Yes -Correct Procedure Yes Yes -Procedure Performed Yes No -Type of Procedure Debridement -Clinical Debridement Selective -Post Debridement Size (cm) - Length 6.5 0 -Post Debridement Size (cm) - Width 5.5 0 -Post Debridement Size (cm) - Depth 0.1 0 -Total Square Cm 35.75 0 -Wound/Ulcer Outcome Not Healed Healed- Epithelialized -Ulcer Cleansing Rinsed/ Irrigated with Saline -Foul Odor after Cleansing No -Bioengineered Tissue No -Bleeding Controlled with Pressure -Offloading No -Treatment Response Procedure Tolerated Well #4 right medial LE cluster -Time 11:03 10:03 10:19 -Correct Patient Yes Yes Yes -Correct Side, Site, Position Yes Yes Yes -Correct Procedure Yes Yes Yes -Procedure Performed Yes Yes Yes -Type of Procedure Debridement Debridement Debridement -Clinical Debridement Subcutaneous Subcutaneous Subcutaneous -Post Debridement Size (cm) - Length 3.2 3.5 3.0 -Post Debridement Size (cm) - Width 6.5 4.5 6.0 -Post Debridement Size (cm) - Depth 0.2 0.2 0.2 -Total Square Cm 20.80 15.75 18.00 -Wound/Ulcer Outcome Not Healed Not Healed Not Healed -Ulcer Cleansing Rinsed/ Rinsed/ Rinsed/ Irrigated with Irrigated with Irrigated with Saline Saline Saline -Foul Odor after Cleansing No No No -Bioengineered Tissue No No No -Bleeding Controlled with Pressure Pressure Pressure -Offloading No No No -Treatment Response Procedure Procedure Procedure Tolerated Well Tolerated Well Tolerated Well Pain Scale: 0-10 Numeric Is Patient Pain Free? Yes Yes Yes Wound debrided: Medial lower leg ulcer cluster Laterality: Right Type of Debridement: Excisional debridement Anesthesia Used: 5% Lidocaine Gel Depth: Down to and including healthy tissue, in the subcutaneous layer Percentage of wound debrided: 100 Instrument Used: 7mm curette Tissue Removed: slough Severity: Limited To Skin Breakdown Amount of bleeding with debridement: None Bleeding Controlled with: Pressure Patient tolerated procedure well Assessment/Plan Active Problems Morbid obesity with BMI of 60.0-69.9, adult (Acute) Lymphedema in adult patient (Acute) Open wound of lower limb without complication (Acute) Superficial ulcer of skin (Acute) Morbid obesity (Acute) Morbid obesity with BMI of 50.0-59.9, adult (Acute) Assessment: Open wound left upper thigh cluster solved. Morbid obesity. Lymphedema. Superficial skin openings on right wood resolved Plan: Wash areas with antibacterial soap. Apply Aquacel AG dressings to the area cover with gauze. Wrap with compression wraps . Follow up in 1 week. Increase use of compression pump to 2 times a day wear over compression stockings
== END 2019-06-08 23:59 ==
LOC: WC 10:00
PROVIDERS: Family Provider Physician Assistant Medical; PCP Physician Assistant Medical; Visit Provider Nurse Practitioner
DX: S70.322A Blister (nonthermal), left thigh, initial encounter (principal); X58.XXXA Exposure to other specified factors, initial encounter; E66.01 Morbid (severe) obesity due to excess calories; Z71.3 Dietary counseling and surveillance; Z68.44 Body mass index [BMI] 60.0-69.9, adult; I89.0 Lymphedema, not elsewhere classified
CPT/HCPCS: 11042; 11045; 99213; G0463

== ENCOUNTER 2019-07-11 10:48 | Outpatient (RCR) | payer MEDICARE, MEDICAID, SELFPAY ==
[2019-07-11 11:33] VITALS: BP 100/66; PULSE 122; RESP 16; TEMP 35.8; BMI 50.6
--- NOTE | 2019-07-11 12:02 | PCM.WC.PN ---
(1) Lymphedema in adult patient Status: Acute Current Visit: Yes Code(s): I89.0 - Lymphedema, not elsewhere classified (2) Morbid obesity Status: Acute Current Visit: Yes Code(s): E66.01 - Morbid (severe) obesity due to excess calories (3) Morbid obesity with BMI of 50.0-59.9, adult Status: Acute Current Visit: Yes Code(s): E66.01 - Morbid (severe) obesity due to excess calories; Z68.43 - Body mass index (BMI) 50.0-59.9, adult (4) Open wound of lower limb without complication Status: Acute Current Visit: Yes Code(s): S81.809A - Unspecified open wound, unspecified lower leg, initial encounter (5) Superficial ulcer of skin Status: Acute Current Visit: No Code(s): L98.491 - Non-pressure chronic ulcer of skin of other sites limited to breakdown of skin Type of Wound Date of Service: 07/11/19 Chief Complaint: Follow-up on open wounds of her left upper thigh History of Wound: 63-year-old white female that has severe lymphedema on arms and lower extremities. She goes to the lymphedema clinic at [facility] weekly. She also uses her pumps 1 hour a day. She sleeps in a recliner she also suffers from morbid obesity. She noted a blistering area on her left upper thigh with seepage. Patient has not been here for over 30 days found out she had pneumonia was in the hospital went to [place] and they addressed her wounds and her lymphedema they managed to get her leg swelling down from 71-55 and the other leg from 39-30 in diameter. Both legs are healed patient will be discharged from the wound center Progress of Wound: Today the wounds are healed patient will be discharged - Physical Exam Vital Signs Temp Pulse Resp BP 96.5 F L 122 H 16 100/66 07/11/19 11:33 07/11/19 11:33 07/11/19 11:33 07/11/19 11:33 General: Oriented x3, Cooperative, Well developed HEENT: Atraumatic, PERRLA Oral: Moist Mucosa Neck: Supple, No JVD Lungs: Clear to auscultation, Normal air movement Cardiovascular: Regular rate, Regular Rhythm Abdomen: Bowel Sounds Present, Soft, Non Tender, No Hepato-splenomegaly Extremities: No clubbing, No edema Wound Measurements and Assessment WC - Nurse 1 - General Ulcer Measurement Start: 07/11/19 11:31 Freq: Status: Active Protocol: Activity Type Activity Date Activity User E-Sign Co-Sign Detail Recorded Client Recorded Date Recorded By Document 07/11/19 11:33 [facility] [id number] 07/11/19 11:42 [facility] 07/11/19 11:33 Wound Center Nurse 1 [Edema Assessment] -Lower Limb Edema Present Yes -Right Calf (cm) 55.5 -Right Ankle (cm) 30.3 -Left Calf (cm) 52.9 -Left Ankle (cm) 28 WC - Nurse 2 - General Ulcer CM Notes Start: 07/11/19 11:31 Freq: Status: Active Protocol: Activity Type Activity Date Activity User E-Sign Co-Sign Detail Recorded Client Recorded Date Recorded By Document 07/11/19 11:52 MW [id number] 07/11/19 11:53 MW 07/11/19 11:52 Pain Scale: 0-10 Numeric [Pain] -Is Patient Pain Free? Yes Musculoskeletal: No Tenderness to Palpation of Joints or Extremities Lymphatic: No Cervical, Supraclavicular, or Inguinal Adenopathy Neurological: Cranial nerves II-XII grossly intact, Neuro grossly intact Psych/Mental Status: Normal Affect, Appropriate Debridement Note Post-Debridement Measurements/Treatment WC - Nurse 2 - General Ulcer CM Notes Start: 07/11/19 11:31 Freq: Status: Active Protocol: Activity Type Activity Date Activity User E-Sign Co-Sign Detail Recorded Client Recorded Date Recorded By Document 07/11/19 11:52 MW [id number] 07/11/19 11:53 MW 07/11/19 11:52 Pain Scale: 0-10 Numeric Is Patient Pain Free? Yes No debridement was completed today Assessment/Plan Active Problems Lymphedema in adult patient (Acute) Open wound of lower limb without complication (Acute) Morbid obesity (Acute) Morbid obesity with BMI of 50.0-59.9, adult (Acute) Assessment: Open wound left upper thigh cluster resolved. Morbid obesity. Lymphedema. Superficial skin openings on right wood resolved Plan: Discharge from the wound center follow-up as needed
== END 2019-08-07 23:59 ==
LOC: WC 10:48
PROVIDERS: PCP Physician Assistant Medical; Visit Provider Nurse Practitioner
DX: Z09 Encounter for follow-up examination after completed treatment for conditions other than malignant neoplasm (principal); I89.0 Lymphedema, not elsewhere classified; E66.01 Morbid (severe) obesity due to excess calories; Z68.43 Body mass index [BMI] 50.0-59.9, adult; Z79.01 Long term (current) use of anticoagulants; Z79.899 Other long term (current) drug therapy
CPT/HCPCS: 99213; G0463

== ENCOUNTER 2022-03-19 10:02 | Outpatient (RCR) | payer MEDICARE, MEDICAID, SELFPAY ==
--- NOTE | 2022-04-06 15:01 | HP.OTEVAL_ITS ---
Patient's Visit Information CATRACHITA HEATON is a 66 year old F, referred to Occupational Therapy by KATELYNN Sarmiento, with a diagnosis of lymphedema of LE. 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 pt states she does have passport and will see if they can assist with putting a walk in shower-. pt states she is getting dressed. pt sleeps in lift chair pt is not sure if legs go down at night -. do not wear the compression socks- - Lymphedema (Circumferential Measure) Mid-foot: right 15cm left 15cm Ankle: right 34cm left 32cm Lower calf: right 57cm left 55cm Largest calf: right 65 left 58cm Below knee: right 55cm left 54cm Above knee: right 77cm left 80cm - Lower Limb Functional Index Lower Extremity Functional Score: 19 - Goals Demonstrate a 20% reduction in edema by d/c: Yes Demonstrate adequate knowledge of self-massage by 2nd week: Yes Demonstrate adequate knowledge skin care/prec by 2nd week: Yes Demonstrate adequate knowledge therapeutic exercises by d/c: Yes - Rehabilitation General Assessment: pt demo with with bilateral LE limiting mobility of pts ambulation- pt has compression pump at home thigh high but has not been using it. Therapist advised pt to return to using the compression pump- perform lymph stim exercise 4-6 x a day - until compression socks can be purchased pts to wrap or use tubigrip on pts LE. pt and pts spouse demo understanding. Rehabilitation Potential: Questionable - Anticipated Interventions Education re Diagnosis, Education re Life-long lymphedema Management, Education re Skin Care and Precautions, Education re Self Massage Techniques, Education re Correct Donning Tech,Care&Wearing Sched Comp Garments, Caregiver Training, Home Program - Visit Plan General Plan: pt to call insurance to see if they cover compression socks 30- 40mmHg. compression sock order [facility]. pt to call when she gets them TEXT: Thank you for the opportunity to evaluate your patient. For Medicare and Medicare HMO plans, please review the plan of care and approve it. It will need to be FAXED BACK to us at [phone] for Medicare purposes. Please let me know if there are questions or concerns regarding this plan of care. Physician Signature: Date:
--- NOTE | 2022-05-27 13:53 | HP.OT.NRP ---
CATRACHITA HEATON was seen in my office for initial evaluation on 03/19/22. The following Plan of Care was established for this patient: Anticipated Interventions: Education re Diagnosis, Education re Life-long lymphedema Management, Education re Skin Care and Precautions, Education re Self Massage Techniques, Education re Correct Donning Tech,Care&Wearing Sched Comp Garments, Caregiver Training, Home Program This patient was last seen in our office 03/19/22. Pertinent comments regarding their Occupational therapy will appear below: pt was seen for OT gareth. At this time no further apts. have been scheduled and due to time lapse of greater than 30 days of services pt is d/c. At this point I will be discontinuing this patient from occupational therapy. I would be happy to see this patient again in the future if found appropriate by the physician. Thank you! Vaishnavi Cota, OTR/L, CHT
== END 2022-03-19 19:00 | disposition home or self-care (01) ==
LOC: OT 10:02
PROVIDERS: PCP Physician Assistant Medical; Referring Provider Physician Assistant Medical; Visit Provider Physician Assistant Medical
DX: I89.0 Lymphedema, not elsewhere classified (principal)
CPT/HCPCS: 97166; 97530